=== PATIENT | male | born 1965 | race Caucasian/White ===

== ENCOUNTER 2019-09-20 00:10 | Outpatient (CLI) | payer BC, SELFPAY ==
[2019-09-20 17:53] LABS: SARS-CoV-2 RNA PCR Negative
== END 2019-09-20 00:11 | disposition home or self-care (01) ==
LOC: ANHCOVIDDT 00:10
PROVIDERS: PCP Family Medicine Adolescent Medicine; Visit Provider Internal Medicine Gastroenterology
DX: Z20.828 Contact with and (suspected) exposure to other viral communicable diseases (principal); Z01.812 Encounter for preprocedural laboratory examination
CPT/HCPCS: 87635; C9803; U0003

== ENCOUNTER 2019-09-23 02:21 | Day surgery (SDC) | payer BC, SELFPAY ==
[2019-09-20 13:03] VITALS: BMI 24.0
[2019-09-23 06:33] VITALS: BP 115/72; PULSE 63; RESP 16; TEMP 36.6; O2SAT 99
[2019-09-23] MEDS: LACTATED RINGERS 1,000 ML 150 ML IV CONT (06:49)
--- NOTE | 2019-09-23 06:50 | WPDANESEPPF ---
Anes - Initial Pre Proc Eval Procedure: Operation Date: 09/23/19 07:30 Proposed Procedures p Screening Colonoscopy - Bhaskar Vaughn MD Date/Time: 09/23/19 06:50 Surgeon: Bhaskar Vaughn MD Pre Op Diagnosis: Neoplasm Screening Patient Data Age: 54 Gender: M Height: 5 ft 10.5 in Weight: 79.4 kg Last Vital Signs Temp 36.6 C 09/23/19 06:33 Pulse 63 09/23/19 06:33 Resp 16 09/23/19 06:33 BP 115/72 09/23/19 06:33 Pulse Ox 99 09/23/19 06:33 Allergies Allergy/AdvReac Type Severity Reaction Status Date / Time SHELLFISH Allergy Mild Uncoded 08/24/09 19:25 Home Medications Medication Instructions Recorded Confirmed Type No Home Medications 09/20/19 09/20/19 History Patient hx anesthesia problems: none Family hx anesthesia problems: none PMFSH Past Medical History Medical History (Updated 09/23/19 @ 06:55 by Norbert Marie MD) Arthritis History of renal stone Surgical History Surgical History (Updated 09/23/19 @ 06:56 by Norbert Marie MD) H/O hernia repair Social History Social History (Updated 09/23/19 @ 06:56 by Norbert Marie MD) Smoking status: Never smoker Gender identity (if verbalized by the patient): Male Anes - Eval Final PreProcedure Day of Procedure 09/23/19 06:50 Patient weight: normal Heart: regular rate and rhythm Lungs: clear to auscultation Airway: Mallampati scale class II Neurological: alert and oriented Last oral intake: >/= 8 hours ASA classification: I Emergent: no Anesthetic plan: proceed Anesthesia type and monitoring: general GIVS and standard monitoring Informed Consent: The patient's anesthetic plan and its attendant risks and benefits were discussed with the patient/family/POA. Questions were solicited and answers provided to the satisfaction of the patient/family/POA.
--- NOTE | 2019-09-23 07:47 | WPDGICN ---
Assessment and Plan Assessment and plan (1) Encounter for screening for colorectal malignant neoplasm: Code(s): Z12.11 - Encounter for screening for malignant neoplasm of colon; Z12.12 - Encounter for screening for malignant neoplasm of rectum Status: Acute Assessment and Plan: Plan is for screening colonoscopy because of patient's age. Patient has no significant risk factors. GI Consult Note Consult date/time: 09/23/19 07:47 HPI: Maciel Lam is a 54 year old male seen in [facility] emergency department at the request of Dr Tee Miller.Patient presents for neoplasia screening colonoscopy. Patient's current weight appetite bowel movements are normal. Patient denies abdominal pain. He states his bowel habits are normal. He denies any blood in his stools. His weight has remained stable. Family history is noncontributory. There is no known history of colon or rectal disease. Review of Systems Review of Systems: All systems reviewed & are unremarkable except as noted in HPI and below PMFSH Past Medical History Medical History Arthritis History of renal stone Surgical History Surgical History H/O hernia repair Social History Social History Smoking status: Never smoker Gender identity (if verbalized by the patient): Male Meds Home Medications and Allergies Home Medications Medication Instructions Recorded Confirmed Type No Home Medications 09/20/19 09/20/19 History Allergies Allergy/AdvReac Type Severity Reaction Status Date / Time SHELLFISH Allergy Mild Rash Uncoded 09/23/19 06:59 Vital Signs Vital Signs - 24 hr 09/23/19 06:33 Temperature 36.6 C Pulse Rate 63 Respiratory Rate 16 Blood Pressure 115/72 Pulse Oximetry 99 Exam Narrative: Exam Narrative: Physical exam reveals patient to be alert. Vital signs stable. HEENT exam unremarkable. Lungs are clear to auscultation and percussion. Heart is without murmur or extra sounds. Abdominal exam bowel sounds are present soft nontender with no organomegaly. Digital external rectal exam is normal.
[2019-09-23 07:49] VITALS: BP 105/72; PULSE 71; RESP 14; O2SAT 98
[2019-09-23 07:59] VITALS: BP 113/85; PULSE 69; RESP 14; O2SAT 100
[2019-09-23 08:09] VITALS: BP 118/80; PULSE 64; RESP 14; O2SAT 100
== END 2019-09-23 08:30 | disposition home or self-care (01) ==
PROVIDERS: PCP Family Medicine Adolescent Medicine; Visit Provider Internal Medicine Gastroenterology
PROC: 0DJD8ZZ Inspection of Lower Intestinal Tract, Via Natural or Artificial Opening Endoscopic (ICD-10-PCS; CPT 45378; principal; 2019-09-23 07:30)
DX: Z12.11 Encounter for screening for malignant neoplasm of colon (principal); K64.8 Other hemorrhoids
CPT/HCPCS: G0121; J2704; J7120

== ENCOUNTER 2021-05-02 14:43 | Emergency (ER) | payer BC, SELFPAY ==
--- NOTE | ~2021-05-02 | XR_ITS ---
XR hand RT 2V DATE: 05/02/2021 15:47 INDICATION: Foreign body right hand TECHNIQUE: AP and lateral views COMPARISON: None FINDINGS: An approximately 7 cm long nail extends from the soft tissues of the proximal first digit a long the anterior distal thenar eminence soft tissues, terminating well anterior to the proximal medi al shaft of the third metacarpal bone., without any bony involvement. There is no fracture or disloca tion. IMPRESSION: Nail in the soft tissues of the base of the thumb and distal thenar eminence, without any bony penetration or fracture Reviewed, dictated and finalized at location A. 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
[2021-05-02 14:51] VITALS: BP 159/86; PULSE 87; RESP 16; TEMP 37; O2SAT 99
--- NOTE | 2021-05-02 16:18 | ED.SKABFB ---
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 Patient denies any tingling or numbness to his hand with strong right radial pulse. MD complaint: foreign body (right hand) Related Data Allergies Allergy/AdvReac Type Severity Reaction Status Date / Time SHELLFISH Allergy Mild Rash Uncoded 05/02/21 16:05 Review of Systems Review of Systems: CONSTITUTIONAL: Denies fever, chills, or sweats. EYES: Denies visual changes, redness, or discharge. ENT: Denies rhinorrhea, congestion, sore throat, or otalgia. CARDIOVASCULAR: Denies chest pain, palpitations, or edema. RESPIRATORY: Denies cough or dyspnea. GASTROINTESTINAL: Denies abdominal pain, nausea, vomiting, or diarrhea. GENITOURINARY: Denies dysuria or hematuria. SKIN: Denies rash or itching.foreign body in his right painter aspect of right hand MUSCULOSKELETAL: Denies back pain, joint pain, or myalgia. NEUROLOGIC: Denies headache, numbness, or weakness. PSYCHIATRIC: Denies anxiety or depression. All systems reviewed & are unremarkable except as noted in HPI and below [facility] Past Medical History Medical History (Updated 05/03/21 @ 00:00 by Luis Morrison) Arthritis History of renal stone Surgical History Surgical History H/O hernia repair Social History Social History (Updated 05/03/21 @ 01:35 by Lizette Mcfarlane NP) Smoking status: Never smoker Alcohol intake: current Alcohol use details: social Substance use: never Living arrangements: with family Gender identity (if verbalized by the patient): Male Comments At time of signature, agree with nursing past medical, surgical, social and family history. There is no relevant family history pertinent to the presenting complaint Exam Narrative: GENERAL: Well-appearing, well-nourished, and in no acute distress. HEAD: Normocephalic, atraumatic. EYES: PERRLA and EOMI. ENT: Nares clear, no rhinorrhea or epistaxis. Mucous membranes moist.Tm'snormal throat pink with no lesions or exudate or tonsil enlargement. NECK: Supple. No lymphadenopathy CHEST: Clear to auscultation. No respiratory distress. HEART: Regular rate and rhythm. No murmur heard. Normal peripheral pulses. ABDOMEN: Soft, nontender, nondistended, normal active bowel sounds. EXTREMITIES: Normal range of motion. No edema.full mobility of right fingers with sensation and circulation intact, strong right radial pulse SKIN: Warm, dry, no rash.7cm embedded nail in painter aspect of right hand NEURO: No focal deficits. Alert and oriented x3. Course Course Level of Care: Express Care Visit Vital Signs Vital signs: Vital Signs Temperature 37.0 C 05/02/21 14:51 Pulse Rate 87 05/02/21 14:51 Respiratory Rate 16 05/02/21 14:51 Blood Pressure 159/86 H 05/02/21 14:51 Pulse Oximetry 99 05/02/21 14:51 Temperature 37.0 C 05/02/21 14:51 Pulse Rate 87 05/02/21 14:51 Respiratory Rate 16 05/02/21 14:51 Blood Pressure 159/86 H 05/02/21 14:51 Pulse Oximetry 99 05/02/21 14:51 Procedures Foreign Body Removal Foreign Body #1: Foreign Body Removal Date: 05/02/21 Foreign Body Removal Time: 16:00 Time Out Performed: yes Site: right and hand Description of foreign body: other (7 cm nail) Sedation/Analgesia: other (Lidocaine 1% 6ml injected into hand along entrance and exit area of nail in right cannon
[2021-05-02] MEDS: TETANUS,DIPHTHERIA,AC PERTUSSIS ADULT (0.5 ML) BOOSTRIX IM (16:39)
== END 2021-05-02 16:50 | disposition home or self-care (01) ==
PROVIDERS: Emergency Provider Registered Nurse
DX: S61.441A Puncture wound with foreign body of right hand, initial encounter (principal); W45.0XXA Nail entering through skin, initial encounter; Z23 Encounter for immunization; M19.90 Unspecified osteoarthritis, unspecified site
CPT/HCPCS: 73120; 90471; 90715; 99213; G0463

== ENCOUNTER 2024-04-06 17:38 | Emergency (ER) | payer BC, SELFPAY ==
--- NOTE | ~2024-04-06 | XR_ITS ---
XR chest 2V Ordering provider: La Betts MD History: 59 years Male with . Chest Pressure . Comparison: None. FINDINGS: MEDIASTINUM: The cardiac silhouette is not enlarged. LUNGS: No infiltrates, effusions or pneumothorax. Prominent bronchovascular markings in the lower lobes. OTHER: No free air under the diaphragm. IMPRESSION: Prominent bronchovascular markings in the lower lobes which may indicate bronchitis versus early bron chopneumonia. Follow-up advised. Reviewed, dictated and finalized at location A. 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 Follow-up advised.
--- NOTE | 2024-04-06 17:39 | ECG_ITS ---
Test Date: 2024-04-06 17:44:53 Measurements Intervals [place] Rate: 85 P: 64 MD: 161 QRS: -5 QRSD: 103 T: 48 QT: 335 QTc: 399 Interpretive Statements SINUS RHYTHM POSSIBLE LEFT ATRIAL ENLARGEMENT [-0.1mV P WAVE IN V1/V2] INCOMPLETE RIGHT BUNDLE BRANCH BLOCK [90+ ms QRS DURATION, TERMINAL R IN V1/V2, 40+ ms S IN I/aVL/V4/V5/V6] No previous ECG available for comparison Electronically Signed On 04-10-2024 15:54:04 DIRECTOR OF FIELD COORDINATION by Jael June M.D.
[2024-04-06 17:45] VITALS: BP 157/98; PULSE 85; RESP 16; TEMP 36.8; O2SAT 98
[2024-04-06 17:59] LABS: Basophils Absolute Auto 0.1 K/mm3 (0.0-0.1); Basophils Percent Auto 0.6 % (0.2-1.2); Eosinophils Absolute Auto 0.4 K/mm3 (0-0.3); Eosinophils Percent Auto 5.2 % (0-4.4); Hematocrit 43.1 % (42.0-52.0); Hemoglobin 14.9 g/dL (14.0-18.0); Immature Granulocyte Absolute 0.02 K/mm3 (0.00-0.031); Immature Granulocyte Percent A 0.3 % (0-0.5); Lymphocytes Absolute Auto 2.86 K/mm3 (0.9-3.2); Lymphocytes Percent Auto 36.3 % (18.3-44.2); Mean Corpuscular HGB Conc 34.6 g/dl (32-36); Mean Corpuscular Hemoglobin 33.3 pg (26-34); Mean Corpuscular Volume 96.4 fl (80-100); Mean Platelet Volume 10.6 fl (7.4-10.4); Monocytes Absolute Auto 0.7 K/mm3 (0.1-0.6); Monocytes Percent Auto 9.3 % (2.6-8.5); Neutrophils Absolute Auto 3.8 K/mm3 (1.3-6.7); Neutrophils Percent Auto 48.3 % (45.5-73.1); Platelet Count Result 202 k/mm3 (150-375); Red Blood Count 4.47 M/mm3 (4.6-6.20); Red Cell Distribution Width 11.7 % (11.5-14.5); White Blood Count 7.9 K/mm3 (4.5-10.0)
[2024-04-06 18:09] LABS: Alanine Aminotransferase 29 U/L (6-50); Albumin Level 4.4 g/dL (3.5-5.1); Alkaline Phosphatase 111 U/L (38-126); Anion Gap 3 mmol/L (4-12); Aspartate Amino Transferase 26 U/L (17-59); Bilirubin,Total 0.7 mg/dL (0.2-1.3); Blood Urea Nitrogen 20 mg/dL (9-20); Carbon Dioxide 25 mmol/L (22-30); Chloride 107 mmol/L (98-107); Estimated CRCL calculation 75 ml/min; Estimated Glomerular Filt Rate > 60; Glucose 138 mg/dL (65-110); Lipase 63 U/L (23-300); Potassium 3.8 mmol/L (3.4-5.0); Sodium 135 mmol/L (137-145)
[2024-04-06 18:20] LABS: INR 0.9; Partial Thromboplastin Time 24.9 Seconds (22.3-36.8)
[2024-04-06 18:21] LABS: Troponin I < 0.012 ng/mL (0.000-0.034)
--- NOTE | 2024-04-06 20:25 | ECG_ITS ---
Test Date: 2024-04-06 20:28:34 Measurements Intervals [place] Rate: 70 P: 62 ME: 167 QRS: 12 QRSD: 92 T: 48 QT: 362 QTc: 391 Interpretive Statements SINUS RHYTHM INCOMPLETE RIGHT BUNDLE BRANCH BLOCK Compared to ECG 04/06/2024 17:44:53 NO SIGNIFICANT CHANGES Electronically Signed On 04-10-2024 15:58:08 CRAYON SORTING MACHINE FEEDER by Jael June M.D.
[2024-04-06 20:50] VITALS: BP 131/72; PULSE 70; RESP 15; TEMP 36.4; O2SAT 100
[2024-04-06 21:12] LABS: Troponin I < 0.012 ng/mL (0.000-0.034)
--- NOTE | 2024-04-06 22:36 | ED.GENADULT ---
HPI - General Adult General Chief complaint: Chest Pain Stated complaint: Chest Pressure, High BP Time Seen by Provider: 04/06/24 22:30 History of Present Illness HPI narrative: patient 59-year-old gentleman who presents emergency department with chief complaint of chest discomfort. The patient states of last several days discomfort in the left side of his chest the patient reports that it feels like a gnawing type pain Related Data Home Medications ?Medication ?Instructions ?Recorded ?Confirmed ?Last Taken ?Type No Home Medications 04/09/24 04/09/24 Unknown History Allergies Allergy/AdvReac Type Severity Reaction Status Date / Time SHELLFISH Allergy Severe Swelling Uncoded 04/09/24 15:53 of Lip/Tongue/Throat Review of Systems Review of Systems: A 10 system review of systems was completed on the patient and is negative except for what is stated in the HPI. Nursing and ancillary documentation was reviewed. [facility] Past Medical History Medical History (Updated 04/09/24 @ 16:49 by Harinder Sampson DO) Arthritis History of renal stone Surgical History Surgical History H/O hernia repair Social History Social History Smoking status: Never smoker Alcohol intake: current Alcohol use details: social Substance use: never Living arrangements: with family Gender identity (if verbalized by the patient): Male Exam Narrative: GENERAL: Well-appearing, well-nourished, and in no acute distress. HEAD: Normocephalic, atraumatic. EYES: PERRLA and EOMI. ENT: Nares clear, no rhinorrhea or epistaxis. Mucous membranes moist. NECK: Supple. CHEST: Clear to auscultation. No respiratory distress. HEART: Regular rate and rhythm. No murmur heard. Normal peripheral pulses. ABDOMEN: Soft, nontender, nondistended, normal active bowel sounds. EXTREMITIES: Normal range of motion. No edema. SKIN: Warm, dry, no rash. NEURO: No focal deficits. Alert and oriented x3. PSYCH: Normal mood and affect. Course Vital Signs Vital signs: Vital Signs Temperature 36.8 C 04/06/24 17:45 Pulse Rate 85 04/06/24 17:45 Respiratory Rate 16 04/06/24 17:45 Blood Pressure 157/98 H 04/06/24 17:45 Pulse Oximetry 98 04/06/24 17:45 Temperature 36.4 C 04/06/24 20:50 Pulse Rate 72 04/06/24 23:19 Respiratory Rate 17 04/06/24 23:19 Blood Pressure 132/98 H 04/06/24 23:19 Pulse Oximetry 98 04/06/24 23:19 Oxygen Delivery Room Air 04/06/24 23:18 Medical Decision Making MDM Narrative Medical decision making narrative: differential diagnosis includes ACS, chest wall pain, pneumonia, pneumothorax CBC was within normal limits CMP is within normal limits troponin was 0 hour and 3 hour chest x-ray showed Prominent bronchovascular markings in the lower lobes which may indicate bronchitis versus early bronchopneumonia. Follow-up advised. Vital Signs Vital Signs: Vital Signs Temperature 36.8 C 04/06/24 17:45 Pulse Rate 85 04/06/24 17:45 Respiratory Rate 16 04/06/24 17:45 Blood Pressure 157/98 H 04/06/24 17:45 Pulse Oximetry 98 04/06/24 17:45 Temperature 36.4 C 04/06/24 20:50 Pulse Rate 72 04/06/24 23:19 Respiratory Rate 17 04/06/24 23:19 Blood Pressure 132/98 H 04/06/24 23:19 Pulse Oximetry 98 04/06/24 23:19 Oxygen Delivery Room Air 04/06/24 23:18 Lab Data 04/06/24 17:54 04/06/24 17:53 Labs: Lab Results 04/06/24 04/06/24 04/06/24 Range/Units 17:53 17:54 20:32 WBC 7.9 (4.5-10.0) K/mm3 RBC 4.47 L (4.6-6.20) M/mm3 Hgb 14.9 (14.0-18.0) g/dL Hct 43.1 (42.0-52.0) % MCV 96.4 (80-100) fl MCH 33.3 (26-34) pg MCHC 34.6 (32-36) g/dl RDW 11.7 (11.5-14.5) % Plt Count 202 (150-375) k/mm3 MPV 10.6 H (7.4-10.4) fl Immature Gran % (Auto) 0.3 (0-0.5) % Neut % (Auto) 48.3 (45.5-73.1) % Lymph % (Auto) 36.3 (18.3-44.2) % [place] % (Auto) 9.3 H (2.6-8.5) % Eos % (Auto) 5.2 H (0-4.4) % Baso % (Auto) 0.6 (0.2-1.2) % Lymph # (Auto) 2.86 (0.9-3.2) K/mm3 [place] # (Auto) 0.7 H (0.1-0.6) K/mm3 Eos # (Auto) 0.4 H (0-0.3) K/mm3 Baso # (Auto) 0.1 (0.0-0.1) K/mm3 Abs Immat Gran (auto) 0.02 (0.00-0.031) K/mm3 Absolute Neuts (auto) 3.8 (1.3-6.7) K/mm3 Absolute Nucleated RBC 0.000 (0.0-0.012) K/mm3 Nucleated RBC % 0.0 (0.0-0.2) % PT 12.0 (11.1-14.7) Seconds INR 0.9 APTT 24.9 (22.3-36.8) Seconds Sodium 135 L (137-145) mmol/L Potassium 3.8 (3.4-5.0) mmol/L Chloride 107 (98-107) mmol/L Carbon Dioxide 25 (22-30) mmol/L Anion Gap 3 L (4-12) mmol/L BUN 20 (9-20) mg/dL Creatinine 1.00 (0.7-1.3) mg/dL Estim Creat Clear Calc 75 ml/min Estimated GFR > 60 (59 - ) Glucose 138 H (65-110) mg/dL Calcium 9.0 (8.4-10.2) mg/dL Total Bilirubin 0.7 (0.2-1.3) mg/dL AST 26 (17-59) U/L ALT 29 (6-50) U/L Alkaline Phosphatase 111 (38-126) U/L Troponin I < 0.012 < 0.012 (0.000-0.034) ng/mL Total Protein 7.0 (6.3-8.2) g/dL Albumin 4.4 (3.5-5.1) g/dL Lipase 63 (23-300) U/L Discharge Plan Discharge Clinical Impression: Atypical chest pain Patient Disposition: Home, Self-Care Condition: Stable Instructions: Antibiotic Form, Chest Pain (ED) Patient Language: Czech Prescriptions: No Action No Home Medications Follow-up/Referrals: Ranjan Peters MD [Physician] - UNKNOWN,DOCTOR [Primary Care Provider] - Time of Disposition: 22:43
[2024-04-06 23:18] VITALS: PULSE 70; O2SAT 100
[2024-04-06 23:19] VITALS: BP 132/98; PULSE 72; RESP 17; O2SAT 98
== END 2024-04-06 23:20 | disposition home or self-care (01) ==
PROVIDERS: Emergency Medicine; Emergency Provider Emergency Medicine
DX: R07.89 Other chest pain (principal); M19.90 Unspecified osteoarthritis, unspecified site; Z87.442 Personal history of urinary calculi; I45.10 Unspecified right bundle-branch block; R94.31 Abnormal electrocardiogram [ECG] [EKG]
CPT/HCPCS: 36415; 71046; 80053; 83690; 84484; 85025; 85610; 85730; 93005; 99284

== ENCOUNTER 2024-05-03 09:33 | Outpatient (CLI) | payer BC, SELFPAY ==
--- NOTE | ~2024-05-03 | NM_ITS ---
EXAMINATION: NM stress w perf spect multi DATE: 05/03/2024 11:58 MANAGER OF TRAINING INDICATION: Chest pain TECHNIQUE: Rest images were obtained following intravenous administration of 11.2 mCi Tc99m tetrofosm in (Myoview). The patient was infused intravenously with Lexiscan (regadenoson). Then, 33.9 mCi Tc99m tetrofosmin (Myoview) was administered intravenously, and stress images were obtained. Data was jv nstructed into short axis and horizontal and vertical long axis SPECT images. Gated SPECT images were also obtained. COMPARISON: None. FINDINGS: There is no definite reversible or fixed perfusion abnormality to suggest ischemia or infar ction. There is no segmental wall motion abnormality. Left ventricular ejection fraction measures 7 1%. IMPRESSION: 1. No definite ischemia or infarct. 2. Normal left ventricular ejection fraction measuring 71%. Reviewed, dictated and finalized at location A. GER OF TRAINING
--- NOTE | 2024-05-03 09:48 | EST_ITS ---
Patient Info Name: Maciel Lam Age: 59 years : 1965 Gender: Male Ht: 70 in Wt: 175 lbs BSA: 1.99 m2 HR: 65 bpm BP: 119 / 72 mmHg Exam Date: 05/03/2024 10:39 AM Exam Location: Echo Lab Patient Status: Outpatient Admit Date: 05/03/2024 Staff Ordering Physician: Harinder Sampson DO Attending Provider: Harinder Sampson DO Exercise Technologist: Nguyen Mishra [facility] Exercise Physician: Presley Renee DO Exam Type: CA stress test treadmill w NM Study Info A nuclear stress test was performed. A nuclear stress test was performed. Summary 1. 1. Negative Ian exercise stress test for ischemic ST changes by ECG criteria. 2. 2. Good functional capacity, achieving 12 METs of workload. 3. 3. Appropriate HR response to exercise. 4. 4. Appropriate HR recovery at 1 minute post exercise. 5. 5. Nuclear scan to follow and will be reported separately. Please correlate with it. 6. 6. Patient informed of the above results. Protocol: Ian Stress ECG Details Stage: REST Duration (min): 2 min : 18 sec Speed (mph): 0.0 Grade (%): 0 HR (bpm): 65 SBP (mmHg): 119 DBP (mmHg): 72 METS: --- Stage: REST Duration (min): 2 min : 50 sec Speed (mph): 0.0 Grade (%): 0 HR (bpm): 67 SBP (mmHg): 119 DBP (mmHg): 72 METS: --- Stage: REST Duration (min): 4 min : 36 sec Speed (mph): 0.0 Grade (%): 0 HR (bpm): 85 SBP (mmHg): 119 DBP (mmHg): 72 METS: --- Stage: STAGE 1 Duration (min): 1 min : 0 sec Speed (mph): 1.7 Grade (%): 10 HR (bpm): 91 SBP (mmHg): 119 DBP (mmHg): 72 METS: --- Stage: STAGE 1 Duration (min): 2 min : 0 sec Speed (mph): 1.7 Grade (%): 10 HR (bpm): 95 SBP (mmHg): 119 DBP (mmHg): 72 METS: --- Stage: STAGE 1 Duration (min): 3 min : 0 sec Speed (mph): 1.7 Grade (%): 10 HR (bpm): 93 SBP (mmHg): 137 DBP (mmHg): 78 METS: --- Stage: STAGE 2 Duration (min): 1 min : 0 sec Speed (mph): 2.5 Grade (%): 12 HR (bpm): 103 SBP (mmHg): 137 DBP (mmHg): 78 METS: --- Stage: STAGE 2 Duration (min): 2 min : 0 sec Speed (mph): 2.5 Grade (%): 12 HR (bpm): 107 SBP (mmHg): 151 DBP (mmHg): 73 METS: --- Stage: STAGE 2 Duration (min): 3 min : 0 sec Speed (mph): 2.5 Grade (%): 12 HR (bpm): 110 SBP (mmHg): 151 DBP (mmHg): 73 METS: --- Stage: STAGE 3 Duration (min): 1 min : 0 sec Speed (mph): 3.4 Grade (%): 14 HR (bpm): 119 SBP (mmHg): 121 DBP (mmHg): 75 METS: --- Stage: STAGE 3 Duration (min): 2 min : 0 sec Speed (mph): 3.4 Grade (%): 14 HR (bpm): 120 SBP (mmHg): 121 DBP (mmHg): 75 METS: --- Stage: STAGE 3 Duration (min): 3 min : 0 sec Speed (mph): 3.4 Grade (%): 14 HR (bpm): 124 SBP (mmHg): 155 DBP (mmHg): 71 METS: --- Stage: STAGE 4 Duration (min): 1 min : 0 sec Speed (mph): 4.2 Grade (%): 16 HR (bpm): 134 SBP (mmHg): 155 DBP (mmHg): 71 METS: --- Stage: STAGE 4 Duration (min): 2 min : 0 sec Speed (mph): 4.2 Grade (%): 16 HR (bpm): 143 SBP (mmHg): 173 DBP (mmHg): 92 METS: --- Stage: STAGE 4 Duration (min): 2 min : 15 sec Speed (mph): 4.2 Grade (%): 16 HR (bpm): 144 SBP (mmHg): 173 DBP (mmHg): 92 METS: --- Stage: RECOVERY Duration (min): 0 min : 44 sec Speed (mph): 0.0 Grade (%): 0 HR (bpm): 118 SBP (mmHg): 173 DBP (mmHg): 92 METS: --- Stage: RECOVERY Duration (min): 1 min : 44 sec Speed (mph): 0.0 Grade (%): 0 HR (bpm): 91 SBP (mmHg): 173 DBP (mmHg): 92 METS: --- Stage: RECOVERY Duration (min): 2 min : 44 sec Speed (mph): 0.0 Grade (%): 0 HR (bpm): 93 SBP (mmHg): 155 DBP (mmHg): 84 METS: --- Stage: RECOVERY Duration (min): 3 min : 2 sec Speed (mph): 0.0 Grade (%): 0 HR (bpm): 83 SBP (mmHg): 155 DBP (mmHg): 84 METS: --- Rest HR: 85 bpm Peak HR: 145 bpm Rest Sys BP: 119 mmHg Peak Sys BP: 173 mmHg Max Pred HR: 161 bpm % Max Pred HR: 90 % Target HR: 137 bpm Max RPP: 25,085 bpm*mmHg Naranjo Score: 8 Termination Reason: Reached target heart rate or workload Cardiac Symptoms: None Max ST Seg Deviation: 1 mm Total Time: 11 min : 15 sec Rest Smith BP: 72 mmHg Peak Smith BP: 92 mmHg Angina Score: None Total METS: 12.1 Resting ECG Sinus rhythm. Stress ECG No ST changes. Arrhythmias None. Report Signatures
--- OUTSIDE RECORDS SUMMARY | 2024-05-03 09:51 | XMS_ITS | Referral Summary ---
Author Organization 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,non-owned Affiliates and Associated Physician Practices is amultiple site organization consisting of ambulatory clinics and hospital sitesin [place], [place], [place] and [place]. This disclosure is being madepursuant to the Care Everywhere program and may not contain all information available regarding this patient. Last updated 17.[facility] Allergies Active Allergy Reactions Criticality Noted Date Comments Shellfish Allergy Angioedema High 11/17/2022 Medications * Be aware that medications may not be up to date on this document. Alwaysverify current medications with the patient. Medication Sig Dispensed Refills Start Date End Date Status apixaban (Eliquis) 2.5 MG tabletIndications:D eep Vein Thrombosis Take 1 (one) tablet by mouth 2 times daily for 35 days 70 tablet 11/19/2022 Active acetaminophen-codei ne (Tylenol #3) 300-30 MG tablet Take 1 (one) tablet by mouth 2 times daily as needed for Pain 30 tablet 12/21/2022 Active Additional Information Patient not taking.Reported on 03/17/2023 HYDROcodone-acetami nophen ([place]) 5-325 MG tabletIndications:C losed fracture of shaft of right femur, unspecified fracture morphology, initial encounter ([facility]) Take 1 (one) tablet by mouth every 8 hours as needed for Pain 30 tablet 12/26/2022 Active Additional Information Patient not taking.Reported on 03/17/2023 naproxen sodium (Aleve) 220 MG tablet Take 1 (one) tablet by mouth 2 times daily as needed for Pain Active Active Problems Problem Noted Date Diagnosed Date Multiple facial fractures 11/18/2022 Impaired mobility and ADLs 11/18/2022 Fall, initial encounter 11/16/2022 Laceration of scalp, initial encounter Closed fracture of shaft of right femur, unspecified fracture morphology, initial encounter 11/16/2022 Immunizations Name Administration Dates Next Due TDAP (7yrs+) 11/16/2022 Social History Tobacco Use Types Packs/Day Years Used Date Smoking Tobacco: Never Smokeless Tobacco: Never Tobacco Cessation:Counseling Given: Not Answered Alcohol Use Standard Drinks/Week Comments Yes 0 (1 standard drink = 0.6 oz pur e alcohol) social OASIS D0700: Social Isolation Answer Da te Recorded Frequency of experiencing loneliness or isolatio n Never 12/30/2022 OASIS A1250: Transportation Answer Date Recorded Lack of Transportation (Medical) No 12/30/2022 Lack of Transportation (Non-Medical) No 12/30/2022 Patient Unable or Declines to Respond No 12/30/2022 OASIS B1300: Health Literacy Answer Hakan e Recorded Frequency of needing help to read materials from doctor or pharmacy Never 12/30/2022 AUDIT-C Answer Date Recorded Q1: How often do you have a drink containing alc ohol? 2-4 times a month 11/17/2022 Q2: How many drinks containi ng alcohol do you have on a typical day when you are drinking? 1 or 2 11/17/2022 Q3: How often do you have si x or more drinks on one occasion? Less than monthly 11/17/2022 Overall Financial Resource Strain (CARDIA) Answe r Date Recorded How hard is it for you to pa y for the very basics like food, housing, medical care, and heating? Not hard at all 11/17/2022 PHQ-2 Answer Date Recorded Patient Health Questionnaire-2 Score 0 03/17/2023 [facility] [employer] [facility] - Occupational Stress Questionnaire Answer Date Recorded Do you feel stress - tense, restless, nervous, or anxious, or unable to sleep at night because your mind is troubled all the time - these days? Not at all 11/17/2022 Hunger Vital Sign Answer Date Recorded Within the past 12 months, y ou worried that your food would run out before you got the money to buy more. Never true 11/18/19 23 Within the past 12 months, t he food you bought just didn't last and you didn't have money to get more. Never true 11/17/2022 PRAPARE - Transportation Answer Date Re corded In the past 12 months, has l ack of transportation kept you from medical appointments or from getting medications? No 11/01 In the past 12 months, has l ack of transportation kept you from meetings, work, or from getting things needed for daily living? No 11/17/2022 Housing Stability Vital Sign Answer Hakan e Recorded In the last 12 months, was t here a time when you were not able to pay the mortgage or rent on time? No 11/17/2022 In the last 12 months, how many places have you lived? 1 11/17/2022 In the last 12 months, was t here a time when you did not have a steady place to sleep or slept in a nursing home (including now)? 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 No 11/17/2022 Is person blind or have serious difficulty seein g? No 11/17/2022 Does person have serious dif ficulty walking/climbing stairs? No 11/17/2022 Does person have difficulty dressing/bathing? No 11/17/2022 Does person have difficulty doing errands alone? No 11/17/2022 Cognitive Status Response Date of Assessm ent Does person have difficulty concentrating/remembering/making decisions? No 11/17/2022 Plan of Treatment Not on file Medical Devices Implanted Type Area Business Development Device Identifier Shelf Expiration Date Model / Serial / Lot Nail Im 11.5mm 13mm 40cm Ntr Nail Fem Implanted:Qty: 1 on 11/17/2022 by Jacoby Sosa MD at [facility] Right: Femur [employer] 04/02/2029 [id number] / / [id number] Screw 6mm 3.5mm 55mm Ft Fx Ang Hex Head Implanted:Qty: 1 on 11/17/2022 by Jacoby Sosa MD at [facility] Right: Femur [employer] 11/25/2030 [id number] / / [id number] Screw 5mm 3.5mm 45mm Ft Fx Ang Hex Head Implanted:Qty: 1 on 11/17/2022 by Jacoby Sosa MD at [facility] Right: Femur [employer] 09/07/2032 [id number] / / [id number] Advance Directives Documents on File Type Date Recorded 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
--- OUTSIDE RECORDS SUMMARY | 2024-05-03 09:51 | XMS_ITS | Patient Health Summary ---
Author Organization [facility] Address [address] [place] [address] Care Team Providers Care Brick Carrier Name Role Phone Tee Miller MD Primary Care Provider + Note from [facility],non-owned Affiliates and Associated Physician Practices is amultiple site organization consisting of ambulatory clinics and hospital sitesin [place], [place], [place] and [place]. This disclosure is being madepursuant to the Care Everywhere program and may not contain all information available regarding this patient. Last updated 17.[facility] Allergies * Shellfish Allergy(Angioedema) -High Criticality Medications * Be aware that medications may not be up to date on this document. Alwaysverify current medications with the patient. * apixaban (Eliquis) 2.5 MG tablet(Started 11/19/2022) Take 1 (one) tablet by mouth 2 times daily for 35 days * acetaminophen-codeine (Tylenol #3) 300-30 MG tablet(Started 12/21/2022) Take 1 (one) tablet by mouth 2 times daily as needed for Pain * HYDROcodone-acetaminophen ([place]) 5-325 MG tablet(Started 12/26/2022) Take 1 (one) tablet by mouth every 8 hours as needed for Pain * naproxen sodium (Aleve) 220 MG tablet Take 1 (one) tablet by mouth 2 times daily as needed for Pain Active Problems Problem Noted Date Diagnosed Date Multiple facial fractures 11/18/2022 Impaired mobility and ADLs 11/18/2022 Fall, initial encounter 11/16/2022 Laceration of scalp, initial encounter 3 Closed fracture of shaft of right femur, unspecified fracture morphology, initial encounter 11/16/2022 Immunizations * TDAP (7yrs+)(Given 11/16/2022) Social History Tobacco Use Types Packs/Day Years [...] Recorded Patient Health Questionnaire-2 Score 0 03/17/2023 [facility] [place] of Occupat ional Health - Occupational Stress [...] place to sleep or slept in a half-way (including now)? No 11/17/2022 Sex and Gender [...] 81.2 kg (179 lb) 03/17/2023 8:31 AM [employer] Height 180.3 cm (5' 11 ) 01/06/2023 1:40 PM CDT Body Mass Index 24.97 01/06/2023 1:40 PM CDT Medical Devices Implanted Type Area Arboriculture Teacher Device Identifier Shelf Expiration Date Model / Serial / Lot Nail Im 11.5mm 13mm 40cm Ntr Nail Fem Implanted:Qty: 1 on 11/17/2022 by Jacoby Sosa MD at [facility] Right: Femur [employer] 04/02/2029 [id number] / / [id number] Screw 6mm 3.5mm 55mm Ft Fx Ang Hex Head Implanted:Qty: 1 on 11/17/2022 by Jacoby Sosa MD at [facility] Right: Femur [employer] 11/25/2030 [id number] / / [id number] Screw 5mm 3.5mm 45mm Ft Fx Ang Hex Head Implanted:Qty: 1 on 11/17/2022 by Jacoby Sosa MD at [facility] Right: Femur [employer] 09/07/2032 [id number] / / [id number] Procedures * XR FEMUR RIGHT 2VW(Performed 05/24/2023) Performed for Closed fracture of shaft of right femur, unspecified fracture morphology, initial encounter ([facility]) * XR FEMUR RIGHT 2VW(Performed 03/21/2023) Performed for Closed fracture of shaft of right femur, unspecified fracture morphology, initial encounter ([facility]) * MRI KNEE RIGHT WO CONTRAST(Performed 02/13/2023) Performed for Closed fracture of shaft of right femur, unspecified fracture morphology, initial encounter ([facility]) * XR FEMUR RIGHT 2VW(Performed 02/10/2023) Performed for Closed fracture of shaft of right femur, unspecified fracture morphology, initial encounter ([facility]) * XR FEMUR RIGHT 2VW(Performed 01/06/2023) Performed for Closed fracture of shaft of right femur, unspecified fracture morphology, initial encounter ([facility]) * CT HEAD WO CONTRAST(Performed 12/27/2022) Performed for Closed fracture of shaft of right femur, unspecified fracture morphology, initial encounter ([facility]) * XR FEMUR RIGHT 2VW(Performed 12/02/2022) Performed for Closed fracture of shaft of right femur, unspecified fracture morphology, initial encounter ([facility]) * PHOSPHORUS BLOOD(Performed 11/19/2022) * MAGNESIUM BLOOD(Performed 11/19/2022) * CBC W/O DIFFERENTIAL(Performed 11/19/2022) * BASIC METABOLIC PANEL (CALCIUM TOTAL)(Performed 11/19/2022) * CT ELBOW RIGHT WO CONTRAST(Performed 11/18/2022) Performed for Closed fracture of shaft of right femur, unspecified fracture morphology, initial encounter ([facility]) * XR SHOULDER RIGHT 2VW OR MORE(Performed 11/18/2022) Performed for Fall, initial encounter * PHOSPHORUS BLOOD(Performed 11/18/2022) * MAGNESIUM BLOOD(Performed 11/18/2022) * CBC W/O DIFFERENTIAL(Performed 11/18/2022) * BASIC METABOLIC PANEL (CALCIUM TOTAL)(Performed 11/18/2022) * FL AILYN SURGERY(Performed 11/17/2022) Performed for Closed fracture of shaft of right femur, unspecified fracture morphology, initial encounter ([facility]) * XR FEMUR RIGHT 2VW(Performed 11/17/2022) Performed for Closed fracture of shaft of right femur, unspecified fracture morphology, initial encounter ([facility]) * ENDOTRACHEAL TUBE NOTE(Performed 11/17/2022) * WI OPEN RX FEMUR FX+INTRAMED BREANNE(Performed 11/17/2022) Performed for Closed fracture of right femur, unspecified fracture morphology, unspecified portion of femur, initial encounter ([facility]) * XR ELBOW RIGHT 3VW OR MORE(Performed 11/17/2022) Performed for Fall, initial encounter * URINE DRUG SCREEN IMMUNOASSAY(Performed 11/17/2022) * CT 3D RECON W INDEPENDENT WKSN(Performed 11/17/2022) Performed for Fall, initial encounter * BLOOD TYPE VERIFICATION(Performed 11/17/2022) * PHOSPHORUS BLOOD(Performed 11/17/2022) * MAGNESIUM BLOOD(Performed 11/17/2022) * CBC W/O DIFFERENTIAL(Performed 11/17/2022) * BASIC METABOLIC PANEL (CALCIUM TOTAL)(Performed 11/17/2022) * XR FEMUR RIGHT 2VW(Performed 11/17/2022) Performed for Closed fracture of shaft of right femur, unspecified fracture morphology, initial encounter ([facility]) * XR KNEE RIGHT 2VW OR LESS(Performed 11/16/2022) Performed for Closed fracture of shaft of right femur, unspecified fracture morphology, initial encounter ([facility]) * ED SEDATION(Performed 11/16/2022) * XR ELBOW RIGHT 3VW OR MORE(Performed 11/16/2022) Performed for Fall, initial encounter * CT FACIAL BONES WO CONTRAST(Performed 11/16/2022) Performed for Fall, initial encounter * CT LUMBAR SPINE WO CONTRAST(Performed 11/16/2022) Performed for Fall, initial encounter * CT THORACIC SPINE WO CONTRAST(Performed 11/16/2022) Performed for Fall, initial encounter * CT CHEST ABDOMEN PELVIS W CONT(Performed 11/16/2022) Performed for Fall, initial encounter * CT CERVICAL SPINE WO CONTRAST(Performed 11/16/2022) Performed for Fall, initial encounter * CT HEAD WO CONTRAST(Performed 11/16/2022) Performed for Fall, initial encounter * XR KNEE RIGHT 2VW OR LESS(Performed 11/16/2022) Performed for Fall, initial encounter * XR FEMUR RIGHT 2VW(Performed 11/16/2022) Performed for Fall, initial encounter * XR PELVIS 1 OR 2VW(Performed 11/16/2022) Performed for Fall, initial encounter * XR CHEST 1VW PORTABLE(Performed 11/16/2022) Performed for Fall, initial encounter * TYPE + SCREEN PANEL(Performed 11/16/2022) * VITAMIN D 25-HYDROXY(Performed 11/16/2022) * BASIC METABOLIC PANEL (CALCIUM TOTAL)(Performed 11/16/2022) * PT-INR [facility](Performed 11/16/2022) * CBC W AUTO DIFFERENTIAL(Performed 11/16/2022) * ALCOHOL ETHYL BLOOD(Performed 11/16/2022) Results * XR FEMUR RIGHT 2VW (05/24/2023 8:00 AM [employer]) Only the most recent of8 resultswithin the time period is included. Anatomical Region Laterality Modality Lower Extremity Radiographic Shahla ging 05/24/2023 8:41 AM [employer] Impressions 05/24/2023 9:26 AM [employer] IMPRESSION: Unchanged alignment. Report dictated by John Rhoades MD (co founder and president). I, Robert Brooke MD have personally reviewed and interpreted this examination/study. > Interpreting Provider: Robert Brooke MD on 05/24/2023 9:26 AM Narrative 05/24/2023 9:26 AM [employer] PROCEDURE: ??XR FEMUR RIGHT 2VW, DATE/TIME OF EXAM: ??05/24/2023 8:00 AM, LOCATION ??[facility] INDICATION: S72.301A: Closed fracture of shaft of right femur, unspecified fracture morphology, initial encounter ([facility]) ADDITIONAL CLINICAL INFORMATION: Ordering Provider Reason For Exam: ??CLOSED FX OF RIGHT FEMUR COMPARISON: Right femur radiograph 03/21/2023. FINDINGS: Redemonstrated internal fixation of the femur with retrograde intramedullary nail and screws. Hardware is intact and the alignment is unchanged. Callus has slightly progressed, most notably along the anterior femur. Procedure Note oRbert Brooke MD - 05/24/2023 PROCEDURE: XR FEMUR RIGHT 2VW, DATE/TIME OF EXAM: 05/24/2023 8:00 AM, LOCATION [facility] INDICATION: S72.301A: Closed fracture of shaft of right femur, unspecified fracture morphology, initial encounter ([facility]) ADDITIONAL CLINICAL INFORMATION: Ordering Provider Reason For Exam: CLOSED FX OF RIGHT FEMUR COMPARISON: Right femur radiograph 03/21/2023. FINDINGS: Redemonstrated internal fixation of the femur with retrograde intramedullary nail and screws. Hardware is intact and the alignment is unchanged. Callus has slightly progressed, most notably along theanterior femur. IMPRESSION: Unchanged alignment. Report dictated by John Rhoades MD (co founder and president). I, Robert Brooke MD have personally reviewed and interpreted this examination/study. > Interpreting Provider: Robert Brooke MD on 05/24/2023 9:26 AM Jacoby Sosa MD DIAGNOSTIC IMAGING O RDERABLES * MRI KNEE RIGHT WO CONTRAST (02/13/2023 10:53 AM [employer]) Anatomical Region Laterality Modality Lower Extremity Magnetic Resonan ce 02/13/2023 11:0 2 AM [employer] Impressions 02/13/2023 11:26 AM [employer] Impression: ?? 1. Femoral intramedullary nail. 2. Moderate bone marrow edema within the visualized distal femur. Increased intracortical signal at the anterior cortex of the distal femur with associated periosteal reaction and overlying periosteal edema. These findings could be posttraumatic and post procedural; osteomyelitis cannot be excluded. 3. Horizontal tear in the posterior horn and body of the medial meniscus. 4. Mild medial compartment arthritis. 5. Area of increased signal within the patellar cartilage with underlying bone marrow edema. This could represent contusion or early arthritis. 6. Postprocedural changes in the patellar tendon and Hoffa's fat. > Interpreting Provider: Robert Brooke MD on 02/13/2023 11:26 AM Narrative 02/13/2023 11:26 AM [employer] PROCEDURE: ??MRI KNEE RIGHT WO CONTRAST DATE/TIME OF EXAM: ??02/13/2023 10:53 AM CLINICAL INFORMATION: None relevant/not provided if blank. Indication: S72.301A: Closed fracture of shaft of right femur, unspecified fracture morphology, initial encounter ([facility]) Additional History: meniscus injury verses ligament tear COMPARISON: Right knee x-rays dated 11/16/2022. TECHNIQUE: MRI of the right knee was performed without contrast. Metal suppression protocol was used. FINDINGS: There is retrograde intramedullary nail and screws are present in the distal femur. There is associated metallic artifact. The anterior and posterior cruciate ligaments are intact. ?? The medial collateral ligament is intact. ?? The biceps femoris tendon, fibular collateral ligament, and iliotibial band are intact. ??The popliteus muscle and tendon are intact. ?? In the medial femorotibial compartment, there is mild to moderate articular cartilage thinning and irregularity. There is a horizontal tear in the posterior horn of the meniscus extending into the body. In the lateral femorotibial compartment, the articular cartilage is normal in thickness without defect. ??There is no lateral meniscal tear. ?? In the patellofemoral compartment, there is an area of increased signal within the patellar cartilage at the median ridge/medial facet measuring 1.1 cm in transverse diameter with underlying bone marrow edema (series 3 image 12) which could represent contusion or early arthritic change. The trochlear cartilage is intact. The patella is normally positioned, and the patella and femoral trochlea are normal in morphology. ??The medial and lateral patellar retinacula are intact. ??The distal quadriceps tendon is normal. There is thickening and increased signal of the patellar tendon and edema within Hoffa's fat, likely postprocedural. There is no knee effusion. There is moderate intensity bone marrow edema in the visualized distal femoral metaphysis and to a lesser extent in the condyles. Periosteal reaction is seen along the anterior cortex of the distal femoral shaft. There is increased intracortical signal in this region. There is overlying periosteal edema. There is mild bone marrow edema in the fibular head. There is soft tissue edema, greater in the distal thigh and greatest in the vastus lateralis muscle. Procedure Note Robert Brooke MD - 02/13/2023 PROCEDURE: MRI KNEE RIGHT WO CONTRAST DATE/TIME OF EXAM: 02/13/2023 10:53 AM CLINICAL INFORMATION: None relevant/not provided if blank. Indication: S72.301A: Closed fracture of shaft of right femur,unspecified fracture morphology, initial encounter ([facility]) Additional History: meniscus injury verses ligament tear COMPARISON: Right knee x-rays dated 11/16/2022. TECHNIQUE: MRI of the right knee was performed without contrast. Metal suppression protocol was used. FINDINGS: There is retrograde intramedullary nail and screws are present in the distal femur. There is associated metallic artifact. The anterior and posterior cruciate ligaments are intact. The medial collateral ligament is intact. The biceps femoris tendon, fibular collateral ligament, and iliotibialband are intact. The popliteus muscle and tendon are intact. In the medial femorotibial compartment, there is mild to moderatearticular cartilage thinning and irregularity. There is a horizontal tear in the posterior horn of the meniscus extending into the body. In the lateral femorotibial compartment, the articular cartilage isnormal in thickness without defect. There is no lateral meniscal tear. In the patellofemoral compartment, there is an area of increased signal within the patellar cartilage at the median ridge/medial facet measuring 1.1 cm in transverse diameter with underlying bone marrow edema (series3 image 12) which could represent contusion or early arthritic change. The trochlear cartilage is intact. The patella is normally positioned, andthe patella and femoral trochlea are normal in morphology. The medial and lateral patellar retinacula are intact. The distal quadriceps tendon is normal. There is thickening and increased signal of the patellar tendonand edema within Hoffa's fat, likely postprocedural. There is no knee effusion. There is moderate intensity bone marrow edema in the visualized distal femoral metaphysis and to a lesser extent in the condyles. Periosteal reaction is seen along the anterior cortex of the distal femoral shaft. There is increased intracortical signal in this region. There isoverlying periosteal edema. There is mild bone marrow edema in the fibular head. There is soft tissue edema, greater in the distal thigh and greatest inthe vastus lateralis muscle. Impression: 1. Femoral intramedullary nail. 2. Moderate bone marrow edema within the visualized distal femur.Increased intracortical signal at the anterior cortex of the distal femur with associated periosteal reaction and overlying periosteal edema. These findings could be posttraumatic and post procedural; osteomyelitiscannot be excluded. 3. Horizontal tear in the posterior horn and body of the medialmeniscus. 4. Mild medial compartment arthritis. 5. Area of increased signal within the patellar cartilage withunderlying bone marrow edema. This could represent contusion or early arthritis. 6. Postprocedural changes in the patellar tendon and Hoffa's fat. > Interpreting Provider: Robert Brooke MD on 02/13/2023 11:26 AM Jacoby Sosa MD MR ORDERABLES * CT HEAD WO CONTRAST (12/27/2022 8:47 AM CDT) Only the most recent of2 resultswithin the time period is included. Anatomical Region Laterality Modality Head Computed Tomogra phy 12/27/2022 9:23 AM CDT Impressions 12/27/2022 10:04 AM CDT IMPRESSION: 1. No acute intracranial process. 2. There is been interval resolution of the previously seen areas of pneumocephalus. 3. Demonstration of multiple facial fractures as described above. The report is dictated by Olga Gutierrez Dr, MD (co founder and president) I, Arian Lance MD have personally reviewed and interpreted this examination/study. > Interpreting Provider: Arian Lance MD on 12/27/2022 10:04 AM Narrative 12/27/2022 10:04 AM CDT PROCEDURE: ??CT HEAD WO CONTRAST, DATE/TIME OF EXAM: ??12/27/2022 8:48 AM, LOCATION ??[facility] INDICATION: S72.301A: Closed fracture of shaft of right femur, unspecified fracture morphology, initial encounter ([facility]) ADDITIONAL CLINICAL INFORMATION: Ordering Provider Reason For Exam: ??pneumocephalus Technologist Note: Additional: EXAMINATION: Computed tomography (CT) of the head without contrast TECHNIQUE: CT of the head was performed without contrast according to standard protocol. CT dose reduction technique was used, including Automated Exposure Control. COMPARISON: No prior study is available for comparison at the time of this dictation. FINDINGS: No acute intracranial hemorrhage or intra- or extra-axial fluid collections are identified. The ventricles are of normal size, shape, and morphology. The basal cisterns are patent. No mass effect or midline shift is seen. The [place]-white matter differentiation is normal. The visualized portions of the orbits, paranasal sinuses, and mastoids appear normal. Many of the previously seen facial fractures are not as well-visualized on this exam, however There is redemonstration of fractures along the lateral wall of the left orbit, left zygomatic arch, anterior portion of the left maxillary sinus, and right greater sphenoid wing. External occipital protuberance is noted. Procedure Note Arian Lance MD - 12/27/2022 PROCEDURE: CT HEAD WO CONTRAST, DATE/TIME OF EXAM: 12/27/2022 8:48 AM, LOCATION [facility] INDICATION: S72.301A: Closed fracture of shaft of right femur, unspecified fracture morphology, initial encounter ([facility]) ADDITIONAL CLINICAL INFORMATION: Ordering Provider Reason For Exam: pneumocephalus Technologist Note: Additional: EXAMINATION: Computed tomography (CT) of the head without contrast TECHNIQUE: CT of the head was performed without contrast according to standard protocol. CT dose reduction technique was used, including Automated Exposure Control. COMPARISON: No prior study is available for comparison at the time ofthis dictation. FINDINGS: No acute intracranial hemorrhage or intra- or extra-axial fluidcollections are identified. The ventricles are of normal size, shape, andmorphology. The basal cisterns are patent. No mass effect or midline shift is seen.The madrid-white matter differentiation is normal. The visualized portions of the orbits, paranasal sinuses, and mastoids appear normal. Many of the previously seen facial fractures are not as well-visualizedon this exam, however There is redemonstration of fractures along thelateral wall of the left orbit, left zygomatic arch, anterior portion of theleft maxillary sinus, and right greater sphenoid wing. External occipital protuberance is noted. IMPRESSION: 1. No acute intracranial process. 2. There is been interval resolution of the previously seen areas of pneumocephalus. 3. Demonstration of multiple facial fractures as described above. The report is dictated by Olga Gutierrez Dr, MD (co founder and president) I, Arian Lance MD have personally reviewed and interpreted this examination/study. > Interpreting Provider: Arian Lance MD on 12/27/2022 10:04 AM Gabriela Antonio PARTS PERSON-INSPECTOR [employer] CT ORDERABLES * (ABNORMAL) CBC W/O DIFFERENTIAL (11/19/2022 2:19 AM CDT) Only the most recent of3 resultswithin the time period is included. WBC 10.5 3.5 - 10.5 10? 3 /uL 11/19/2022 3:15 AM [facility] RBC 3.07(L) 4.30 - 5.70 10? 6 /uL 11/19/2022 3:15 AM [facility] Hemoglobin 10.2(L) 12.0 - 17.6 g/dL 11/19/2022 3:15 AM [facility] Hematocrit 29.2(L) 35.2 - 51.7 % 11/19/2022 3:15 AM [facility] MCV 95.1 80.7 - 98.3 fL 11/19/2022 3:15 AM [facility] MCH 33.2 26.7 - 34.0 pg 11/19/2022 3:15 AM [facility] MCHC 34.9 30.8 - 35.9 g/dL 11/19/2022 3:15 AM [facility] RDW-SD 41.1 36.0 - 50.0 fL 11/19/2022 3:15 AM [facility] RDW-CV 11.9 11.2 - 14.8 % 11/19/2022 3:15 AM [facility] Platelet Count 151 150 - 400 10? 3 /uL 11/19/2022 3:15 AM [facility] MPV 11.1 9.4 - 12.9 fL 11/19/2022 3:15 AM [facility] nRBC Absolute 0.00 0 10? 3 /uL 11/19/2022 3:15 AM [facility] nRBC Auto 0.0 0 /100 WBC 11/19/2022 3:15 AM [facility] Blood BLOOD SPECIMEN / Unknown Lab Venipuncture / Unknown 11/19/2022 2:19 AM CDT 11/19/2022 3:04 AM T Usman Araiza MD LAB - HEMATOLOGY ORD ERABLES [facility] [address] [place] [address], [facility] [phone] * (ABNORMAL) BASIC METABOLIC PANEL (CALCIUM TOTAL) (11/19/2022 2:19 AM CDT) Only the most recent of4 resultswithin the time period is included. BUN 10 7 - 26 mg/dL 11/19/2022 3:30 AM [facility] Creatinine 0.74 0.71 - 1.16 mg/dL 11/19/2022 3:30 AM [facility] Sodium 133(L) 136 - 145 mmol/L 11/19/2022 3:30 AM [facility] Potassium 4.0 3.5 - 4.5 mmol/L 11/19/2022 3:30 AM [facility] Chloride 100 98 - 107 mmol/L 11/19/2022 3:30 AM [facility] CO2 27 22 - 29 mmol/L 11/19/2022 3:30 AM [facility] Glucose 101 70 - 115 mg/dL 11/19/2022 3:30 AM [facility] Calcium 8.4 8.4 - 10.2 mg/dL 11/19/2022 3:30 AM [facility] Anion Gap 10 8 - 18 11/19/2022 3:30 AM [facility] BUN/Creatinine Ratio 14 7 - 23 11/19/2022 3:30 AM [facility] Osmolality Calculated 275 270 - 300 mOsm/kg 11/19/2022 3:30 AM [facility] eGFR by CKD-EPI >90 >=90 mL/min/1.7 3 m2 11/19/2022 3:30 AM [facility] Blood BLOOD SPECIMEN / Unknown Lab Venipuncture / Unknown 11/19/2022 2:19 AM CDT 11/19/2022 3:04 AM T Usman Araiza MD LAB - CHEMISTRY [facility] Organization Address City/State/ZIP Co de Phone Number [facility] [address] [place] [address], [facility] [phone] * (ABNORMAL) PHOSPHORUS BLOOD (11/19/2022 2:19 AM CDT) Only the most recent of3 resultswithin the time period is included. Phosphorus 1.8(L) 2.8 - 5.1 mg/dL 11/19/2022 3:30 AM CDT [facility] Blood BLOOD SPECIMEN / Unknown Lab Venipuncture / Unknown 11/19/2022 2:19 AM CDT 11/19/2022 3:04 AM CDT Usman Araiza MD LAB - CHEMISTRY [place] Performing Organization Address City/[facility]/ZIP Co de Phone Number [address] [address], [facility] [phone] * MAGNESIUM BLOOD (11/19/2022 2:19 AM CDT) Only the most recent of3 resultswithin the time period is included. Magnesium 1.8 1.6 - 2.6 mg/dL 11/19/2022 3:30 AM CDT [facility] Blood BLOOD SPECIMEN / Unknown Lab Venipuncture / Unknown 11/19/2022 2:19 AM CDT 11/19/2022 3:04 AM CDT Usman Araiza MD LAB - CHEMISTRY [place] Performing Organization Address City/[facility]/ZIP Co de Phone Number [address] [address], [place] [phone] * CT ELBOW RIGHT WO CONTRAST (11/18/2022 8:18 AM CDT) Anatomical Region Laterality Modality Upper Extremity Computed Tomogra phy 11/18/2022 9:34 AM CDT Impressions 11/18/2022 10:02 AM CDT IMPRESSION: 1. Small osseous fragments of the coronoid and olecranon process of the right elbow, corticated and are age indeterminate, favored to be chronic in nature. Recommend correlation with focal tenderness. 2. There is an 8 mm loose body in the elbow joint. Report dictated by Torin Camilo MD (co founder and president) I, Juan C Gupta MD have personally reviewed and interpreted this examination/study. > Interpreting Provider: Juan C Gupta MD on 11/18/2022 10:02 AM Narrative 11/18/2022 10:02 AM CDT PROCEDURE: ??CT ELBOW RIGHT WO CONTRAST, DATE/TIME OF EXAM: ??11/18/2022 8:19 AM, LOCATION ??[facility] INDICATION: S72.301A: Closed fracture of shaft of right femur, unspecified fracture morphology, initial encounter ([facility]) ADDITIONAL CLINICAL INFORMATION: Ordering Provider Reason For Exam: ??fx TECHNIQUE: CT of the elbow was obtained without intravenous contrast. COMPARISON: Elbow radiograph dated 11/17/2022 FINDINGS: Redemonstration of a small bony fragment at the coronoid process, that appears corticated and is age-indeterminate. There is a similar-appearing corticated osseous fragment at the tip of the olecranon process, also age indeterminate. Additional 8mm intra-articular corticated fragment (series 4 image 181) is unclear of donor site, representing an intra-articular loose body. The elbow joint is anatomical alignment. Adjacent soft tissue swelling is present. Procedure Note Juan C Gupta MD - 11/18/2022 PROCEDURE: CT ELBOW RIGHT WO CONTRAST, DATE/TIME OF EXAM: 38:19 AM, LOCATION [facility] INDICATION: S72.301A: Closed fracture of shaft of right femur, unspecified fracture morphology, initial encounter ([facility]) ADDITIONAL CLINICAL INFORMATION: Ordering Provider Reason For Exam: fx TECHNIQUE: CT of the elbow was obtained without intravenous contrast. COMPARISON: Elbow radiograph dated 11/17/2022 FINDINGS: Redemonstration of a small bony fragment at the coronoid process, that appears corticated and is age-indeterminate. There is asimilar-appearing corticated osseous fragment at the tip of the olecranon process, alsoage indeterminate. Additional 8mm intra-articular corticated fragment (series 4 image 181)is unclear of donor site, representing an intra-articular loose body. The elbow joint is anatomical alignment. Adjacent soft tissue swellingis present. IMPRESSION: 1. Small osseous fragments of the coronoid and olecranon process of the right elbow, corticated and are age indeterminate, favored to be chronicin nature. Recommend correlation with focal tenderness. 2. There is an 8 mm loose body in the elbow joint. Report dictated by Torin Camilo MD (co founder and president) Juan C Ferguson MD have personally reviewed and interpreted this examination/study. > Interpreting Provider: Juan C Gupta MD on 11/18/2022 10:02 AM Darian Wilkinson MD CT ORDERABLES * XR SHOULDER RIGHT 2VW OR MORE (11/18/2022 6:42 AM CDT) Anatomical Region Laterality Modality Upper Extremity Radiographic Shahla ging 11/18/2022 1:01 PM CDT Narrative 11/18/2022 2:28 PM CDT PROCEDURE: ??XR SHOULDER RIGHT 2VW OR MORE, DATE/TIME OF EXAM: ??11/18/2022 6:42 AM, LOCATION ??[facility] INDICATION: W19.XXXA: Fall, initial encounter ADDITIONAL CLINICAL INFORMATION: Ordering Provider Reason For Exam: ??shoulder pain COMPARISON: None. FINDINGS/IMPRESSION: The osseous structures are intact without acute fracture. The glenohumeral and acromioclavicular joints are in anatomic alignment. Bone density and texture are normal. ?? Report dictated by Charlette Nowak DO (co founder and president). Juan C Ferguson MD have personally reviewed and interpreted this examination/study. > Interpreting Provider: Juan C Gupta MD on 11/18/2022 2:28 PM Procedure Note Juan C Gupta MD - 11/18/2022 PROCEDURE: XR SHOULDER RIGHT 2VW OR MORE, DATE/TIME OF EXAM: 11/18/2022 6:42 AM, LOCATION [facility] INDICATION: W19.XXXA: Fall, initial encounter ADDITIONAL CLINICAL INFORMATION: Ordering Provider Reason For Exam: shoulder pain COMPARISON: None. FINDINGS/IMPRESSION: The osseous structures are intact without acute fracture. Theglenohumeral and acromioclavicular joints are in anatomic alignment. Bone density and texture are normal. Report dictated by Charlette Nowak DO (co founder and president). Juan C Ferguson MD have personally reviewed and interpreted this examination/study. > Interpreting Provider: Juan C Gupta MD on 11/18/2022 2:28 PM Darian Wilkinson MD DIAGNOSTIC IMAGING ORDERABLES * FL AILYN SURGERY (11/17/2022 3:57 PM CDT) Narrative [facility] - 11/17/2022 3:57 PM CDT Fluoroscopy was used for this exam in the OR. Please see the Operative report. Jacoby Sosa MD FLUOROSCOPY ORDERABL ES [facility] * ETT LINE PERFORMABLE (11/17/2022 2:36 PM CDT) Narrative Jacoby Gonzalez MD - 11/17/2022 2:36 PM CDT Jacoby Gonzalez MD ? 11/17/2022 ??4:41 PM Endotracheal Tube Placement: ? Patient Location: OR. Intubation Event Date/Time: ??11/17/2022 2:16 PM Procedure: intubation ([id number]). Procedure Section: ?? Sedation: under general anesthesia. Indications for Airway Management: ??anesthesia Procedure pretreatments used? ??No Induction: standard IV Patient Position: ??sniffing Mask Ventilation: easy. Blade Type: [place] Blade Size: 2 Laryngoscopy View: grade 1 (full cords) Intubation Adjuncts: stylet Tube: endotracheal tube Placement: oral Tube type: cuff - inflated Tube Size (MM): 7 Depth of Insertion (CM): 22 Measured From: lips Cuff volume (mL): ??7 Cuff Inflated With: air Number of Attempts: 1. Placement Verified By: direct visualization, bilateral breath sounds, chest auscultation and CO2 monitor CXR Findings: ETT in proper place. Dentition unchanged? ??Yes Difficult Airway? ??No. Procedure Start Time: 11/17/2022 2:16 PM. Staff Section ? Anesthesia Provider: Jacoby Gonzalez MD, Performed the procedure Jacoby Gonzalez MD GENERAL ANESTHESIA O RDERABLES * XR ELBOW RIGHT 3VW OR MORE (11/17/2022 10:08 AM CDT) Only the most recent of2 resultswithin the time period is included. Anatomical Region Laterality Modality Upper Extremity Radiographic Shahla ging 11/17/2022 10:1 9 AM CDT Narrative 11/17/2022 10:54 AM CDT PROCEDURE: ??XR ELBOW RIGHT 3VW OR MORE, DATE/TIME OF EXAM: ??11/17/2022 10:08 AM, LOCATION ??[facility] INDICATION: W19.XXXA: Fall, initial encounter ADDITIONAL CLINICAL INFORMATION: Ordering Provider Reason For Exam: ??fx COMPARISON: 11/16/2022 right elbow radiograph FINDINGS/IMPRESSION: Splint material is present, obscuring some soft tissue and osseous detail. Possible fracture of the coronoid process is in unchanged alignment. Report dictated by Charlette Nowak DO (co founder and president). Maria De Jesus Ferguson MD have personally reviewed and interpreted this examination/study. > Interpreting Provider: Maria De Jesus Mata MD on 11/17/2022 10:54 AM Procedure Note Maria De Jesus Mata MD - 11/17/2022 PROCEDURE: XR ELBOW RIGHT 3VW OR MORE, DATE/TIME OF EXAM: 0:08 AM, LOCATION [facility] INDICATION: W19.XXXA: Fall, initial encounter ADDITIONAL CLINICAL INFORMATION: Ordering Provider Reason For Exam: fx COMPARISON: 11/16/2022 right elbow radiograph FINDINGS/IMPRESSION: Splint material is present, obscuring some soft tissue and osseousdetail. Possible fracture of the coronoid process is in unchanged alignment. Report dictated by Charlette Nowak DO (co founder and president). Maria De Jesus Ferguson MD have personally reviewed and interpreted this examination/study. > Interpreting Provider: Maria De Jesus Mata MD on 11/17/2022 10:54 AM Haim Castro MD DIAGNOSTIC IMAGING O RDERABLES * (ABNORMAL) URINE DRUG SCREEN IMMUNOASSAY (11/17/2022 8:34 AM CDT) [facility] Amphetamines Screen Urine Negative Negative : < 1000 ng/mL 11/17/2022 9:02 AM CDT [facility] Barbiturates Screen Urine Negative Negative : < 200 ng/mL 11/17/2022 9:02 AM [facility] Benzodiazepine Screen Urine Negative Negative : < 200 ng/mL 11/17/2022 9:02 AM [facility] Opiates Urine Positive(A) Negative : < 300 ng/mL 11/17/2022 9:02 AM [facility] Comment:Positive urine opiat e screening results should be confirmed by another generally accepted non-immunological method such as gas chromatography or mass spectrometry. Cocaine Metabolites Urine Negative Negative : < 300 ng/mL 11/17/2022 9:02 AM [facility] Phencyclidine Screen Urine Negative Negative : < 25 ng/ml 11/17/2022 9:02 AM [facility] Cannabinoids Screen Urine Negative Negative : <50 ng/mL 11/17/2022 9:02 AM [facility] Methadone Screen Urine Negative Negative : < 300 ng/mL 11/17/2022 9:02 AM [facility] Fentanyl Screen Urine Negative Negative : <1.5 ng/mL 11/17/2022 9:02 AM [facility] Urine URINE / Unknown Collection / Unknown 11/17/2022 8:34 AM T 11/17/2022 8:38 AM [facility] - 11/17/2022 9:02 AM [facility] The Urine Toxicology Screening Panel does not screen for Propoxyphene, Meprobamate, Carisoprodol, Trazodone, urov-giy-qmiwiov medications and/or volatiles (Acetone, Isopropanol, Methanol or Ethylene Glycol). Ethanol, Salicylate, Acetaminophen, Tricyclic Antidepressants and several therapeutic drugs may be individually assayed in serum or plasma specimen. Toxicology testing by the [facility] is an aid to medical diagnosis and treatment of patients. No documented chain of custody was maintained. Results are intended to be used for clinical purposes only. ? Tad Booker MD LAB - URINE CHEMISTR Y ORDERABLES Performing Organization Address City/State/[facility] Co de Phone Number [facility] [address] [place] [address], [facility] [phone] * CT 3D RECON W INDEPENDENT WKSN (11/17/2022 7:38 AM CDT) Anatomical Region Laterality Modality Computed Tomogra phy 11/17/2022 7:41 AM CDT Narrative 11/17/2022 7:47 AM CDT PROCEDURE: ??CT 3D RECON W INDEPENDENT WKSN DATE/TIME OF EXAM: ??11/17/2022 7:38 AM CLINICAL INFORMATION: None relevant/not provided if blank. Indication: W19.XXXA: Fall, initial encounter TECHNIQUE: TECHNIQUE: Three-dimensional shaded surface rendering of the facial bones was performed by a technologist on a separate three-dimensional workstation at the request of the referring physician and submitted for review. COMPARISON: Comparison is made with CT of the face from 11/16/2022. FINDINGS - IMPRESSION: The three-dimensional images confirm the findings of nondisplaced fractures involving the left zygomatic arch, bilateral maxillary sinuses, left lateral orbital wall, are more conspicuous on prior two-dimensional CT, please refer to CT face from 11/16/2022 for additional details. > Interpreting Provider: Samantha Montano MD on 11/17/2022 7:47 AM Procedure Note Samantha Montano MD - 11/17/2022 PROCEDURE: CT 3D RECON W INDEPENDENT WKSN DATE/TIME OF EXAM: 11/17/2022 7:38 AM CLINICAL INFORMATION: None relevant/not provided if blank. Indication: W19.XXXA: Fall, initial encounter TECHNIQUE: TECHNIQUE: Three-dimensional shaded surface rendering of the facialbones was performed by a technologist on a separate three-dimensionalworkstation at the request of the referring physician and submitted for review. COMPARISON: Comparison is made with CT of the face from 11/16/2022. FINDINGS - IMPRESSION: The three-dimensional images confirm the findings of nondisplacedfractures involving the left zygomatic arch, bilateral maxillary sinuses, left lateral orbital wall, are more conspicuous on prior two-dimensional CT, please refer to CT face from 11/16/2022 for additional details. > Interpreting Provider: Samantha Montano MD on 11/17/2022 7:47 AM Haim Castro MD CT ORDERABLES * BLOOD TYPE VERIFICATION (11/17/2022 5:35 AM CDT) ABO Rh O POS 11/17/2022 6:1 7 AM CDT [facility] Blood Bank BLOOD SPECIMEN / Unknown 11/17/2022 5:35 AM CDT 11/17/2022 5:52 AM CDT Tad Booker MD LAB - BLOOD BANK ORD ERABLES [facility] [address] [place] [address], [facility] [phone] * XR KNEE RIGHT 2VW OR LESS (11/16/2022 11:40 PM CDT) Only the most recent of2 resultswithin the time period is included. Anatomical Region Laterality Modality Lower Extremity Radiographic Shahla ging 11/17/2022 4:15 AM CDT Narrative 11/17/2022 7:00 AM CDT PROCEDURE: ??XR KNEE RIGHT 2VW OR LESS, DATE/TIME OF EXAM: ??11/16/2022 11:40 PM, LOCATION ??[facility] INDICATION: S72.301A: Closed fracture of shaft of right femur, unspecified fracture morphology, initial encounter ([facility]) ADDITIONAL CLINICAL INFORMATION: Ordering Provider Reason For Exam: ??S/p traction Technologist Note: Additional: COMPARISON: None. FINDINGS/IMPRESSION: Interval placement of an extra fixation breanne in the proximal tibia. Otherwise, no acute osseous abnormality.. Report dictated by Luis A Peres DO (co founder and president). Venkatesh Ferguson MD have personally reviewed and interpreted this examination/study. > Interpreting Provider: Venkatesh Velasquez MD on 11/17/2022 7:00 AM Procedure Note Venkatesh Velasquez MD - 11/17/2022 PROCEDURE: XR KNEE RIGHT 2VW OR LESS, DATE/TIME OF EXAM: 1:40 PM, LOCATION [facility] INDICATION: S72.301A: Closed fracture of shaft of right femur, unspecified fracture morphology, initial encounter ([facility]) ADDITIONAL CLINICAL INFORMATION: Ordering Provider Reason For Exam: S/p traction Technologist Note: Additional: COMPARISON: None. FINDINGS/IMPRESSION: Interval placement of an extra fixation breanne in the proximal tibia. Otherwise, no acute osseous abnormality.. Report dictated by Luis A Peres DO (co founder and president). Venkatesh Ferguson MD have personally reviewed and interpreted this examination/study. > Interpreting Provider: Venkatesh Velasquez MD on 37:00 AM Usman Araiza MD DIAGNOSTIC IMAGING O RDERABLES * Sedation (11/16/2022 11:36 PM CDT) Narrative Usman Araiza MD - 11/16/2022 11:36 PM CDT Nick Washington MD ? 11/16/2022 11:40 PM Sedation Date/Time: 11/16/2022 11:36 PM Performed by: Nick Washington MD Authorized by: Usman Araiza MD ??Consent: Verbal consent obtained. Risks and benefits: risks, benefits and alternatives were discussed Consent given by: patient Patient understanding: patient states understanding of the procedure being performed Patient identity confirmed: verbally with patient Time out: Immediately prior to procedure a time out was called to verify the correct patient, procedure, equipment, underwriting support specialist and site/side marked as required. Likelihood of discomfort Low Ability to remain immobile Good Anticipated level of sedation Moderate History of sleep apnea/snoring No Limited ROM-head,mouth,neck c-collar on. Sedation: Patient sedated: yes Sedation type: moderate (conscious) sedation Sedatives: ketamine Vitals: Vital signs were monitored during sedation. Patient tolerance: patient tolerated the procedure well with no immediate complications Usman Araiza MD PROCEDURE/MINOR SURG ICAL ORDERABLES * CT CHEST ABDOMEN PELVIS W CONT - Abdomen-pelvis trauma, blunt or penetrating (11/16/2022 9:17 PM CDT) Anatomical Region Laterality Modality Chest, Abdomen, Pelvis Computed Tomography 11/16/2022 9:19 PM CDT Impressions 11/17/2022 12:13 AM CDT Impression: 1.No acute visceral, vascular, or osseus injury identified in the chest, abdomen, or pelvis. > Dictated by Luis A Peres DO (co founder and president). Wallace Ferguson MD have personally reviewed and interpreted this examination/study. > Interpreting Provider: Wallace Brasher MD on 11/17/2022 12:13 AM Narrative 11/17/2022 12:13 AM CDT PROCEDURE: ??CT CHEST ABDOMEN PELVIS W CONT, DATE/TIME OF EXAM: ??11/16/2022 9:19 PM, LOCATION ??[facility] INDICATION: Trauma COMPARISON: None. TECHNIQUE: CT of the chest, abdomen, and pelvis was performed after the uneventful administration of 100 mL of Isovue 370 intravenous contrast according to standard protocol. Findings: Chest: Lower Neck and Axillae: Normal. Lungs: No pulmonary parenchymal or airway process is present. No suspicious pulmonary nodules are identified. No pleural fluid or pneumothorax is present. Heart and Pericardium: The cardiac chambers are normal in size. No pericardial fluid or thickening is present. Mediastinum and Vicky: No mediastinal hemorrhage is present. No enlarged lymph nodes are present. Thoracic Vasculature: No vascular abnormality is present. Abdomen/pelvis: Liver: Normal. Gallbladder and Bile Ducts: Normal. Spleen: Normal. Pancreas: Normal. Adrenals: Normal. Kidneys: Normal. Gastrointestinal: The stomach and visualized loops of large and small bowel are unremarkable. Normal appendix. Mesentery/Peritoneum/Retroperitoneum: No free intraperitoneal air. No free fluid in the abdomen or pelvis. Pelvis: The bladder is normal. The prostate is normal. There is no free pelvic fluid. Abdominal Vasculature: No vascular abnormality is present. Bones: Bone windows demonstrate no suspicious lytic or blastic lesions. No acute fractures. Fusion of the C7 and T1 vertebral bodies. Chronic deformity of the posterior left 11th and 12th ribs. Degenerative changes throughout the spine. Chronic bilateral pars defects at L5 with grade 1 anterolisthesis of L5 on S1. Soft tissues: Normal. Procedure Note Ambar Brasher MD - 11/17/2022 PROCEDURE: CT CHEST ABDOMEN PELVIS W CONT, DATE/TIME OF EXAM:11/16/2022 9:19 PM, LOCATION [facility] INDICATION: Trauma COMPARISON: None. TECHNIQUE: CT of the chest, abdomen, and pelvis was performed after the uneventful administration of 100 mL of Isovue 370 intravenous contrast according to standard protocol. Findings: Chest: Lower Neck and Axillae: Normal. Lungs: No pulmonary parenchymal or airway process is present. No suspicious pulmonary nodules are identified. No pleural fluid or pneumothorax is present. Heart and Pericardium: The cardiac chambers are normal in size. No pericardial fluid orthickening is present. Mediastinum and Vicky: No mediastinal hemorrhage is present. No enlarged lymph nodes arepresent. Thoracic Vasculature: No vascular abnormality is present. Abdomen/pelvis: Liver: Normal. Gallbladder and Bile Ducts: Normal. Spleen: Normal. Pancreas: Normal. Adrenals: Normal. Kidneys: Normal. Gastrointestinal: The stomach and visualized loops of large and small bowel areunremarkable. Normal appendix. Mesentery/Peritoneum/Retroperitoneum: No free intraperitoneal air. No free fluid in the abdomen or pelvis. Pelvis: The bladder is normal. The prostate is normal. There is no free pelvic fluid. Abdominal Vasculature: No vascular abnormality is present. Bones: Bone windows demonstrate no suspicious lytic or blastic lesions. Noacute fractures. Fusion of the C7 and T1 vertebral bodies. Chronic deformityof the posterior left 11th and 12th ribs. Degenerative changes throughoutthe spine. Chronic bilateral pars defects at L5 with grade 1 anterolisthesisof L5 on S1. Soft tissues: Normal. Impression: 1.No acute visceral, vascular, or osseus injury identified in the chest, abdomen, or pelvis. > Dictated by Luis A Peres DO (co founder and president). Wallace Ferguson MD have personally reviewed and interpreted this examination/study. > Interpreting Provider: Wallace Brasher MD on 11/17/2022 12:13 AM Tad Booker MD CT ORDERABLES * CT LUMBAR SPINE WO CONTRAST - T/L-spine trauma, Spine fracture (11/16/2022 9:17 PM CDT) Anatomical Region Laterality Modality Spine Computed Tomogra phy 11/16/2022 9:27 PM CDT Impressions 11/16/2022 11:54 PM CDT IMPRESSION: 1.No acute intracranial abnormality. 2.Multiple minimally displaced/nondisplaced acute maxillofacial fractures as described in the findings, which is associated with trace pneumocephalus along the right anterior middle cranial fossa and trace foci of gas within the right extraconal space. No evidence of globe trauma or retro-orbital bulbar hematoma. 3.No acute fracture or traumatic malalignment of the cervical, thoracic, or lumbar spine. This study was dictated by co founder and president Maico Regan MD and reviewed and edited by the attending. I, Marcelo Ingram MD, PhD have personally reviewed and interpreted this examination/study. > Interpreting Provider: Marcelo Ingram MD, PhD on 11/16/2022 11:54 PM Narrative 11/16/2022 11:54 PM CDT EXAM: CT HEAD WO CONTRAST, CT FACIAL BONES WO CONTRAST, CT LUMBAR SPINE WO CONTRAST, CT THORACIC SPINE WO CONTRAST, CT CERVICAL SPINE WO CONTRAST, DATE/TIME OF EXAM: 11/16/2022 9:19 PM, LOCATION: ??[facility] HISTORY: Trauma EXAMINATION: CT scan of the head and facial bones/paranasal sinuses in addition to CT scan of the cervical, thoracic, and lumbar spine without intravenous contrast TECHNIQUE: CT of the head, facial bones/paranasal sinuses, and cervical spine was performed without intravenous contrast according to standard protocol. CT dose reduction technique was used, including Automated Exposure Control. Reformatted axial, sagittal, and coronal images of the thoracic and lumbar spine were obtained by the technologist from a concurrently performed chest, abdomen, and pelvis CT and sent to the workstation for review. COMPARISON: No prior similar studies are available for comparison. FINDINGS: HEAD: BRAIN PARENCHYMA: No acute hemorrhage, large vascular territory infarct, or mass effect. No acute hemorrhage, large vascular territory infarct, or mass effect. White matter is within normal limits for age. VENTRICLES/EXTRA-AXIAL SPACES: No ventriculomegaly or extra-axial collection. Basal cisterns are patent. Trace focus of pneumocephalus along the right anterior middle cranial fossa associated with an acute nondisplaced fracture of the right greater wing of the sphenoid. EXTRACRANIAL STRUCTURES: Acute nondisplaced fracture of the right greater wing of the sphenoid. Additional minimally displaced/nondisplaced acute maxillofacial fractures as described below. Large laceration of the right anterior frontal scalp/right supraorbital region with a small underlying soft tissue hemorrhage. FACE/SINUSES: BONES: Multiple minimally displaced/nondisplaced acute maxillofacial fractures, including the following: --Acute nondisplaced fracture of the right greater wing of the sphenoid (3/169, 5/144), which extends to the right orbital apex. This is associated with trace pneumocephalus along the right anterior middle cranial fossa (3/176). --Acute minimally displaced fracture of the right orbital roof (5/127-129). This is associated with trace foci of left extraconal gas (3/192, 5/122). --Acute nondisplaced fracture of the right anterior and posterior maxillary sinus alejandra (5/166, 127). --Acute nondisplaced fracture of the left lateral orbital wall extending to the left proximal zygomatic arch (5/108, 115). --Acute minimally displaced fracture of the midportion of the left zygomatic arch (3/41). --Acute nondisplaced fracture of the left squamosal portion of the temporal bone (3/150). --Acute minimally displaced comminuted fracture of the anterosuperior portion of the left maxillary sinus wall/left orbital floor (3/160, 5/82). Additional acute minimally displace fracture of the left anterior maxillary sinus wall elsewhere (6/106, 113; 3/139). PARANASAL SINUSES: Moderate mucosal opacification/suspected blood products of the ethmoid air cells extending into the frontoethmoidal recesses. Small liquid levels/suspected blood products within the right maxillary and left sphenoid sinuses. Mild mucosal thickening of the maxillary sinuses. NASAL CAVITY: Mild mucosal thickening of nasal cavity. Mild rightward deviated deviated nasal septum with a small spur. ORBITS: Suspected right intraconal orbital varices 1.4 x 0.8 cm and 1.4 x 0.9 cm in the axial plane (4/178, 196) and small foci of right extraconal gas associated with right orbital wall acute fractures described above; otherwise, unremarkable orbits. Globes are intact. No evidence of retrobulbar hematoma. SOFT TISSUES: Large laceration of the right anterior frontal scalp/right supraorbital region with a small underlying soft tissue hemorrhage. Mild soft tissue swelling of the left frontal scalp/supraorbital region. Mild right pre-malar soft tissue swelling measuring up to 0.7 cm in thickness (4/166). OTHER: Bubbly opacities layering within the naso-oropharynx. CERVICAL SPINE: ALIGNMENT: Straightening of cervical spine lordotic curvature in addition to minimal retrolisthesis of C3 on C4. No traumatic malalignment. ATLANTOAXIAL JOINT: The dens is intact, the lateral masses of C1 are normally aligned relative to C2, and the atlantodental interval is unremarkable, other than mild degenerative changes. BONES: Vertebral body heights are maintained without evidence of acute fracture. 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 DISCS: Multilevel disc space narrowing, which is notably moderate at the C6-C7 level. DEGENERATIVE CHANGES: Overall moderate multilevel degenerative changes, characterized by varying degrees of posterior disc bulges/osteophyte complexes, facet arthropathy, and uncovertebral joint hypertrophy. ?? SPINAL CANAL/NEUROFORAMEN: Multilevel spinal canal stenoses that is severe at the C6-C7 level and moderate elsewhere secondary to posterior disc bulges/osteophyte complexes on a background of congenital spinal canal narrowing. Multilevel neuroforaminal narrowing that is notably high-grade at the left C3-C4 and bilateral C6-C7 levels secondary to uncovertebral joint hypertrophy. SOFT TISSUES: No prevertebral soft tissue swelling. Visualized neck soft tissues are normal. Incidentally noted scattered tonsilloliths. OTHER: Mild scarring of the lung apices. THORACIC SPINE: ALIGNMENT: Normal. BONES: Vertebral body heights are maintained without evidence of acute fracture. DISCS: Multilevel disc space narrowing with a few scattered small endplate Schmorl's nodes. DEGENERATIVE CHANGES: Overall mild multilevel degenerative changes. ?? SPINAL CANAL/NEUROFORAMEN: No significant osseous spinal canal stenosis. Multilevel high-grade bilateral neuroforaminal narrowing of the ludrc-jz-woz thoracic spine. ?? SOFT TISSUES: Visualized soft tissues are normal. OTHER: Partially imaged portions of lungs are predominantly clear. LUMBAR SPINE: ALIGNMENT: Grade 1 anterolisthesis of L5 on S1 (measuring 10 mm) secondary to chronic L5 bilateral pars defects. Lumbar vertebral alignment is otherwise unremarkable. No evidence of acute traumatic malalignment. BONES: Vertebral body heights are maintained without evidence of acute fracture. Chronic L5 bilateral pars defects. DISCS: Multilevel disc space narrowing, which is notably moderate at the L2-L3 and L5-S1 levels with vacuum disc phenomena. DEGENERATIVE CHANGES: Overall moderate multilevel degenerative change, characterized by varying degrees of posterior disc bulges, ligamentum flavum hypertrophy, and facet arthropathy. ?? SPINAL CANAL/NEUROFORAMEN: Moderate spinal canal stenosis at the L2-L3 and L3-L4 levels secondary to posterior bulges/ligamentum flavum hypertrophy, and facet arthropathy. ??Severe neuroforaminal narrowing at the right L2-L3 and bilateral L5-S1 levels and lwupysqg-wg-[id number] neuroforaminal narrowing elsewhere throughout the lumbar spine. SOFT TISSUES: Visualized soft tissues are normal. OTHER: Minimal degenerative changes of the sacroiliac joints. Procedure Note Marcelo Ingram MD - 11/16/2022 EXAM: CT HEAD WO CONTRAST, CT FACIAL BONES WO CONTRAST, CT LUMBAR SPINEWO CONTRAST, CT THORACIC SPINE WO CONTRAST, CT CERVICAL SPINE WO CONTRAST, DATE/TIME OF EXAM: 11/16/2022 9:19 PM, LOCATION: [facility] HISTORY: Trauma EXAMINATION: CT scan of the head and facial bones/paranasal sinuses in addition to CT scan of the cervical, thoracic, and lumbar spine without intravenous contrast TECHNIQUE: CT of the head, facial bones/paranasal sinuses, and cervical spine was performed without intravenous contrast according to standard protocol.CT dose reduction technique was used, including Automated Exposure Control. Reformatted axial, sagittal, and coronal images of the thoracic andlumbar spine were obtained by the technologist from a concurrently performed chest, abdomen, and pelvis CT and sent to the workstation for review. COMPARISON: No prior similar studies are available for comparison. FINDINGS: HEAD: BRAIN PARENCHYMA: No acute hemorrhage, large vascular territory infarct,or mass effect. No acute hemorrhage, large vascular territory infarct, ormass effect. White matter is within normal limits for age. VENTRICLES/EXTRA-AXIAL SPACES: No ventriculomegaly or extra-axial collection. Basal cisterns are patent. Trace focus of pneumocephalusalong the right anterior middle cranial fossa associated with an acute nondisplaced fracture of the right greater wing of the sphenoid. EXTRACRANIAL STRUCTURES: Acute nondisplaced fracture of the rightgreater wing of the sphenoid. Additional minimally displaced/nondisplaced acute maxillofacial fractures as described below. Large laceration of theright anterior frontal scalp/right supraorbital region with a small underlying soft tissue hemorrhage. FACE/SINUSES: BONES: Multiple minimally displaced/nondisplaced acute maxillofacial fractures, including the following: --Acute nondisplaced fracture of the right greater wing of the sphenoid (3/169, 5/144), which extends to the right orbital apex. This isassociated with trace pneumocephalus along the right anterior middle cranial fossa (3/176). --Acute minimally displaced fracture of the right orbital roof(5/127-129). This is associated with trace foci of left extraconal gas (3/192,5/122). --Acute nondisplaced fracture of the right anterior and posteriormaxillary sinus alejandra (5/166, 127). --Acute nondisplaced fracture of the left lateral orbital wall extendingto the left proximal zygomatic arch (5/108, 115). --Acute minimally displaced fracture of the midportion of the left zygomatic arch (3/41). --Acute nondisplaced fracture of the left squamosal portion of thetemporal bone (3/150). --Acute minimally displaced comminuted fracture of the anterosuperior portion of the left maxillary sinus wall/left orbital floor (3/160,5/82). Additional acute minimally displace fracture of the left anteriormaxillary sinus wall elsewhere (6/106, 113; 3/139). PARANASAL SINUSES: Moderate mucosal opacification/suspected bloodproducts of the ethmoid air cells extending into the frontoethmoidal recesses.Small liquid levels/suspected blood products within the right maxillary andleft sphenoid sinuses. Mild mucosal thickening of the maxillary sinuses. NASAL CAVITY: Mild mucosal thickening of nasal cavity. Mild rightward deviated deviated nasal septum with a small spur. 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 Globes are intact. No evidence of retrobulbar hematoma. SOFT TISSUES: Large laceration of the right anterior frontal scalp/right supraorbital region with a small underlying soft tissue hemorrhage. Mild soft tissue swelling of the left frontal scalp/supraorbital region. Mild right pre-malar soft tissue swelling measuring up to 0.7 cm in thickness (4/166). OTHER: Bubbly opacities layering within the naso-oropharynx. CERVICAL SPINE: ALIGNMENT: Straightening of cervical spine lordotic curvature inaddition to minimal retrolisthesis of C3 on C4. No traumatic malalignment. ATLANTOAXIAL JOINT: The dens is intact, the lateral masses of C1 are normally aligned relative to C2, and the atlantodental interval is unremarkable, other than mild degenerative changes. BONES: Vertebral body heights are maintained without evidence of acute fracture. 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 DISCS: Multilevel disc space narrowing, which is notably moderate at the C6-C7 level. DEGENERATIVE CHANGES: Overall moderate multilevel degenerative changes, characterized by varying degrees of posterior disc bulges/osteophyte complexes, facet arthropathy, and uncovertebral joint hypertrophy. SPINAL CANAL/NEUROFORAMEN: Multilevel spinal canal stenoses that issevere at the C6-C7 level and moderate elsewhere secondary to posterior disc bulges/osteophyte complexes on a background of congenital spinal canal narrowing. Multilevel neuroforaminal narrowing that is notablyhigh-grade at the left C3-C4 and bilateral C6-C7 levels secondary to uncovertebral joint hypertrophy. SOFT TISSUES: No prevertebral soft tissue swelling. Visualized neck soft tissues are normal. Incidentally noted scattered tonsilloliths. OTHER: Mild scarring of the lung apices. THORACIC SPINE: ALIGNMENT: Normal. BONES: Vertebral body heights are maintained without evidence of acute fracture. DISCS: Multilevel disc space narrowing with a few scattered smallendplate Schmorl's nodes. DEGENERATIVE CHANGES: Overall mild multilevel degenerative changes. SPINAL CANAL/NEUROFORAMEN: No significant osseous spinal canal stenosis. Multilevel high-grade bilateral neuroforaminal narrowing of the [id number]-dv-[id number] thoracic spine. SOFT TISSUES: Visualized soft tissues are normal. OTHER: Partially imaged portions of lungs are predominantly clear. LUMBAR SPINE: ALIGNMENT: Grade 1 anterolisthesis of L5 on S1 (measuring 10 mm)secondary to chronic L5 bilateral pars defects. Lumbar vertebral alignment is otherwise unremarkable. No evidence of acute traumatic malalignment. BONES: Vertebral body heights are maintained without evidence of acute fracture. Chronic L5 bilateral pars defects. DISCS: Multilevel disc space narrowing, which is notably moderate at the L2-L3 and L5-S1 levels with vacuum disc phenomena. DEGENERATIVE CHANGES: Overall moderate multilevel degenerative change, characterized by varying degrees of posterior disc bulges, ligamentum flavum hypertrophy, and facet arthropathy. SPINAL CANAL/NEUROFORAMEN: Moderate spinal canal stenosis at the L2-L3and L3-L4 levels secondary to posterior bulges/ligamentum flavumhypertrophy, and facet arthropathy. Severe neuroforaminal narrowing at the rightL2-L3 and bilateral L5-S1 levels and fizjwqfr-mr-horcre neuroforaminalnarrowing elsewhere throughout the lumbar spine. SOFT TISSUES: Visualized soft tissues are normal. OTHER: Minimal degenerative changes of the sacroiliac joints. IMPRESSION: 1.No acute intracranial abnormality. 2.Multiple minimally displaced/nondisplaced acute maxillofacialfractures as described in the findings, which is associated with tracepneumocephalus along the right anterior middle cranial fossa and trace foci of gaswithin the right extraconal space. No evidence of globe trauma or retro-orbital bulbar hematoma. 3.No acute fracture or traumatic malalignment of the cervical, thoracic,or lumbar spine. This study was dictated by co founder and president Maico Regan MD and reviewed and edited by the attending. I, Marcelo Ingram MD, PhD have personally reviewed and interpreted this examination/study. > Interpreting Provider: Marcelo Ingram MD, PhD on 11/16/2022 11:54 PM Tad Booker MD CT ORDERABLES * CT THORACIC SPINE WO CONTRAST - T/L-spine trauma, spine fracture (11/16/2022 9:17 PM CDT) Anatomical Region Laterality Modality Spine Computed Tomogra phy 11/16/2022 9:27 PM CDT Impressions 11/16/2022 11:54 PM CDT IMPRESSION: 1.No acute intracranial abnormality. 2.Multiple minimally displaced/nondisplaced acute maxillofacial fractures as described in the findings, which is associated with trace pneumocephalus along the right anterior middle cranial fossa and trace foci of gas within the right extraconal space. No evidence of globe trauma or retro-orbital bulbar hematoma. 3.No acute fracture or traumatic malalignment of the cervical, thoracic, or lumbar spine. This study was dictated by co founder and president Maico Regan MD and reviewed and edited by the attending. I, Marcelo Ingram MD, PhD have personally reviewed and interpreted this examination/study. > Interpreting Provider: Marcelo Ingram MD, PhD on 11/16/2022 11:54 PM Narrative 11/16/2022 11:54 PM CDT EXAM: CT HEAD WO CONTRAST, CT FACIAL BONES WO CONTRAST, CT LUMBAR SPINE WO CONTRAST, CT THORACIC SPINE WO CONTRAST, CT CERVICAL SPINE WO CONTRAST, DATE/TIME OF EXAM: 11/16/2022 9:19 PM, LOCATION: ??[facility] HISTORY: Trauma EXAMINATION: CT scan of the head and facial bones/paranasal sinuses in addition to CT scan of the cervical, thoracic, and lumbar spine without intravenous contrast TECHNIQUE: CT of the head, facial bones/paranasal sinuses, and cervical spine was performed without intravenous contrast according to standard protocol. CT dose reduction technique was used, including Automated Exposure Control. Reformatted axial, sagittal, and coronal images of the thoracic and lumbar spine were obtained by the technologist from a concurrently performed chest, abdomen, and pelvis CT and sent to the workstation for review. COMPARISON: No prior similar studies are available for comparison. FINDINGS: HEAD: BRAIN PARENCHYMA: No acute hemorrhage, large vascular territory infarct, or mass effect. No acute hemorrhage, large vascular territory infarct, or mass effect. White matter is within normal limits for age. VENTRICLES/EXTRA-AXIAL SPACES: No ventriculomegaly or extra-axial collection. Basal cisterns are patent. Trace focus of pneumocephalus along the right anterior middle cranial fossa associated with an acute nondisplaced fracture of the right greater wing of the sphenoid. EXTRACRANIAL STRUCTURES: Acute nondisplaced fracture of the right greater wing of the sphenoid. Additional minimally displaced/nondisplaced acute maxillofacial fractures as described below. Large laceration of the right anterior frontal scalp/right supraorbital region with a small underlying soft tissue hemorrhage. FACE/SINUSES: BONES: Multiple minimally displaced/nondisplaced acute maxillofacial fractures, including the following: --Acute nondisplaced fracture of the right greater wing of the sphenoid (3/169, 5/144), which extends to the right orbital apex. This is associated with trace pneumocephalus along the right anterior middle cranial fossa (3/176). --Acute minimally displaced fracture of the right orbital roof (5/127-129). This is associated with trace foci of left extraconal gas (3/192, 5/122). --Acute nondisplaced fracture of the right anterior and posterior maxillary sinus alejandra (5/166, 127). --Acute nondisplaced fracture of the left lateral orbital wall extending to the left proximal zygomatic arch (5/108, 115). --Acute minimally displaced fracture of the midportion of the left zygomatic arch (3/41). --Acute nondisplaced fracture of the left squamosal portion of the temporal bone (3/150). --Acute minimally displaced comminuted fracture of the anterosuperior portion of the left maxillary sinus wall/left orbital floor (3/160, 5/82). Additional acute minimally displace fracture of the left anterior maxillary sinus wall elsewhere (6/106, 113; 3/139). PARANASAL SINUSES: Moderate mucosal opacification/suspected blood products of the ethmoid air cells extending into the frontoethmoidal recesses. Small liquid levels/suspected blood products within the right maxillary and left sphenoid sinuses. Mild mucosal thickening of the maxillary sinuses. NASAL CAVITY: Mild mucosal thickening of nasal cavity. Mild rightward deviated deviated nasal septum with a small spur. ORBITS: Suspected right intraconal orbital varices 1.4 x 0.8 cm and 1.4 x 0.9 cm in the axial plane (4/178, 196) and small foci of right extraconal gas associated with right orbital wall acute fractures described above; otherwise, unremarkable orbits. Globes are intact. No evidence of retrobulbar hematoma. SOFT TISSUES: Large laceration of the right anterior frontal scalp/right supraorbital region with a small underlying soft tissue hemorrhage. Mild soft tissue swelling of the left frontal scalp/supraorbital region. Mild right pre-malar soft tissue swelling measuring up to 0.7 cm in thickness (4/166). OTHER: Bubbly opacities layering within the naso-oropharynx. CERVICAL SPINE: ALIGNMENT: Straightening of cervical spine lordotic curvature in addition to minimal retrolisthesis of C3 on C4. No traumatic malalignment. ATLANTOAXIAL JOINT: The dens is intact, the lateral masses of C1 are normally aligned relative to C2, and the atlantodental interval is unremarkable, other than mild degenerative changes. BONES: Vertebral body heights are maintained without evidence of acute fracture. 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 DISCS: Multilevel disc space narrowing, which is notably moderate at the C6-C7 level. DEGENERATIVE CHANGES: Overall moderate multilevel degenerative changes, characterized by varying degrees of posterior disc bulges/osteophyte complexes, facet arthropathy, and uncovertebral joint hypertrophy. ?? SPINAL CANAL/NEUROFORAMEN: Multilevel spinal canal stenoses that is severe at the C6-C7 level and moderate elsewhere secondary to posterior disc bulges/osteophyte complexes on a background of congenital spinal canal narrowing. Multilevel neuroforaminal narrowing that is notably high-grade at the left C3-C4 and bilateral C6-C7 levels secondary to uncovertebral joint hypertrophy. SOFT TISSUES: No prevertebral soft tissue swelling. Visualized neck soft tissues are normal. Incidentally noted scattered tonsilloliths. OTHER: Mild scarring of the lung apices. THORACIC SPINE: ALIGNMENT: Normal. BONES: Vertebral body heights are maintained without evidence of acute fracture. DISCS: Multilevel disc space narrowing with a few scattered small endplate Schmorl's nodes. DEGENERATIVE CHANGES: Overall mild multilevel degenerative changes. ?? SPINAL CANAL/NEUROFORAMEN: No significant osseous spinal canal stenosis. Multilevel high-grade bilateral neuroforaminal narrowing of the hkogf-ty-ule thoracic spine. ?? SOFT TISSUES: Visualized soft tissues are normal. OTHER: Partially imaged portions of lungs are predominantly clear. LUMBAR SPINE: ALIGNMENT: Grade 1 anterolisthesis of L5 on S1 (measuring 10 mm) secondary to chronic L5 bilateral pars defects. Lumbar vertebral alignment is otherwise unremarkable. No evidence of acute traumatic malalignment. BONES: Vertebral body heights are maintained without evidence of acute fracture. Chronic L5 bilateral pars defects. DISCS: Multilevel disc space narrowing, which is notably moderate at the L2-L3 and L5-S1 levels with vacuum disc phenomena. DEGENERATIVE CHANGES: Overall moderate multilevel degenerative change, characterized by varying degrees of posterior disc bulges, ligamentum flavum hypertrophy, and facet arthropathy. ?? SPINAL CANAL/NEUROFORAMEN: Moderate spinal canal stenosis at the L2-L3 and L3-L4 levels secondary to posterior bulges/ligamentum flavum hypertrophy, and facet arthropathy. ??Severe neuroforaminal narrowing at the right L2-L3 and bilateral L5-S1 levels and gxeqtobn-lm-owkifb neuroforaminal narrowing elsewhere throughout the lumbar spine. SOFT TISSUES: Visualized soft tissues are normal. OTHER: Minimal degenerative changes of the sacroiliac joints. Procedure Note Marcelo Ingram MD - 11/16/2022 EXAM: CT HEAD WO CONTRAST, CT FACIAL BONES WO CONTRAST, CT LUMBAR SPINEWO CONTRAST, CT THORACIC SPINE WO CONTRAST, CT CERVICAL SPINE WO CONTRAST, DATE/TIME OF EXAM: 11/16/2022 9:19 PM, LOCATION: [facility] HISTORY: Trauma EXAMINATION: CT scan of the head and facial bones/paranasal sinuses in addition to CT scan of the cervical, thoracic, and lumbar spine without intravenous contrast TECHNIQUE: CT of the head, facial bones/paranasal sinuses, and cervical spine was performed without intravenous contrast according to standard protocol.CT dose reduction technique was used, including Automated Exposure Control. Reformatted axial, sagittal, and coronal images of the thoracic andlumbar spine were obtained by the technologist from a concurrently performed chest, abdomen, and pelvis CT and sent to the workstation for review. COMPARISON: No prior similar studies are available for comparison. FINDINGS: HEAD: BRAIN PARENCHYMA: No acute hemorrhage, large vascular territory infarct,or mass effect. No acute hemorrhage, large vascular territory infarct, ormass effect. White matter is within normal limits for age. VENTRICLES/EXTRA-AXIAL SPACES: No ventriculomegaly or extra-axial collection. Basal cisterns are patent. Trace focus of pneumocephalusalong the right anterior middle cranial fossa associated with an acute nondisplaced fracture of the right greater wing of the sphenoid. EXTRACRANIAL STRUCTURES: Acute nondisplaced fracture of the rightgreater wing of the sphenoid. Additional minimally displaced/nondisplaced acute maxillofacial fractures as described below. Large laceration of theright anterior frontal scalp/right supraorbital region with a small underlying soft tissue hemorrhage. FACE/SINUSES: BONES: Multiple minimally displaced/nondisplaced acute maxillofacial fractures, including the following: --Acute nondisplaced fracture of the right greater wing of the sphenoid (3/169, 5/144), which extends to the right orbital apex. This isassociated with trace pneumocephalus along the right anterior middle cranial fossa (3/176). --Acute minimally displaced fracture of the right orbital roof(5/127-129). This is associated with trace foci of left extraconal gas (3/192,5/122). --Acute nondisplaced fracture of the right anterior and posteriormaxillary sinus alejandra (5/166, 127). --Acute nondisplaced fracture of the left lateral orbital wall extendingto the left proximal zygomatic arch (5/108, 115). --Acute minimally displaced fracture of the midportion of the left zygomatic arch (3/41). --Acute nondisplaced fracture of the left squamosal portion of thetemporal bone (3/150). --Acute minimally displaced comminuted fracture of the anterosuperior portion of the left maxillary sinus wall/left orbital floor (3/160,5/82). Additional acute minimally displace fracture of the left anteriormaxillary sinus wall elsewhere (6/106, 113; 3/139). PARANASAL SINUSES: Moderate mucosal opacification/suspected bloodproducts of the ethmoid air cells extending into the frontoethmoidal recesses.Small liquid levels/suspected blood products within the right maxillary andleft sphenoid sinuses. Mild mucosal thickening of the maxillary sinuses. NASAL CAVITY: Mild mucosal thickening of nasal cavity. Mild rightward deviated deviated nasal septum with a small spur. 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 Globes are intact. No evidence of retrobulbar hematoma. SOFT TISSUES: Large laceration of the right anterior frontal scalp/right supraorbital region with a small underlying soft tissue hemorrhage. Mild soft tissue swelling of the left frontal scalp/supraorbital region. Mild right pre-malar soft tissue swelling measuring up to 0.7 cm in thickness (4/166). OTHER: Bubbly opacities layering within the naso-oropharynx. CERVICAL SPINE: ALIGNMENT: Straightening of cervical spine lordotic curvature inaddition to minimal retrolisthesis of C3 on C4. No traumatic malalignment. ATLANTOAXIAL JOINT: The dens is intact, the lateral masses of C1 are normally aligned relative to C2, and the atlantodental interval is unremarkable, other than mild degenerative changes. BONES: Vertebral body heights are maintained without evidence of acute fracture. 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 DISCS: Multilevel disc space narrowing, which is notably moderate at the C6-C7 level. DEGENERATIVE CHANGES: Overall moderate multilevel degenerative changes, characterized by varying degrees of posterior disc bulges/osteophyte complexes, facet arthropathy, and uncovertebral joint hypertrophy. SPINAL CANAL/NEUROFORAMEN: Multilevel spinal canal stenoses that issevere at the C6-C7 level and moderate elsewhere secondary to posterior disc bulges/osteophyte complexes on a background of congenital spinal canal narrowing. Multilevel neuroforaminal narrowing that is notablyhigh-grade at the left C3-C4 and bilateral C6-C7 levels secondary to uncovertebral joint hypertrophy. SOFT TISSUES: No prevertebral soft tissue swelling. Visualized neck soft tissues are normal. Incidentally noted scattered tonsilloliths. OTHER: Mild scarring of the lung apices. THORACIC SPINE: ALIGNMENT: Normal. BONES: Vertebral body heights are maintained without evidence of acute fracture. DISCS: Multilevel disc space narrowing with a few scattered smallendplate Schmorl's nodes. DEGENERATIVE CHANGES: Overall mild multilevel degenerative changes. SPINAL CANAL/NEUROFORAMEN: No significant osseous spinal canal stenosis. Multilevel high-grade bilateral neuroforaminal narrowing of the fmgau-ef-kzm thoracic spine. SOFT TISSUES: Visualized soft tissues are normal. OTHER: Partially imaged portions of lungs are predominantly clear. LUMBAR SPINE: ALIGNMENT: Grade 1 anterolisthesis of L5 on S1 (measuring 10 mm)secondary to chronic L5 bilateral pars defects. Lumbar vertebral alignment is otherwise unremarkable. No evidence of acute traumatic malalignment. BONES: Vertebral body heights are maintained without evidence of acute fracture. Chronic L5 bilateral pars defects. DISCS: Multilevel disc space narrowing, which is notably moderate at the L2-L3 and L5-S1 levels with vacuum disc phenomena. DEGENERATIVE CHANGES: Overall moderate multilevel degenerative change, characterized by varying degrees of posterior disc bulges, ligamentum flavum hypertrophy, and facet arthropathy. SPINAL CANAL/NEUROFORAMEN: Moderate spinal canal stenosis at the L2-L3and L3-L4 levels secondary to posterior bulges/ligamentum flavumhypertrophy, and facet arthropathy. Severe neuroforaminal narrowing at the rightL2-L3 and bilateral L5-S1 levels and ymlutgnu-no-rurxmw neuroforaminalnarrowing elsewhere throughout the lumbar spine. SOFT TISSUES: Visualized soft tissues are normal. OTHER: Minimal degenerative changes of the sacroiliac joints. IMPRESSION: 1.No acute intracranial abnormality. 2.Multiple minimally displaced/nondisplaced acute maxillofacialfractures as described in the findings, which is associated with tracepneumocephalus along the right anterior middle cranial fossa and trace foci of gaswithin the right extraconal space. No evidence of globe trauma or retro-orbital bulbar hematoma. 3.No acute fracture or traumatic malalignment of the cervical, thoracic,or lumbar spine. This study was dictated by co founder and president Maico Regan MD and reviewed and edited by the attending. I, Marcelo Ingram MD, PhD have personally reviewed and interpreted this examination/study. > Interpreting Provider: Marcelo Ingram MD, PhD on 11/16/2022 11:54 PM Tad Booker MD CT ORDERABLES * CT CERVICAL SPINE WO CONTRAST - C-Spine Trauma, Spine fracture (11/16/2022 9:17 PM CDT) Anatomical Region Laterality Modality Spine Computed Tomogra phy 11/16/2022 9:27 PM CDT Impressions 11/16/2022 11:54 PM CDT IMPRESSION: 1.No acute intracranial abnormality. 2.Multiple minimally displaced/nondisplaced acute maxillofacial fractures as described in the findings, which is associated with trace pneumocephalus along the right anterior middle cranial fossa and trace foci of gas within the right extraconal space. No evidence of globe trauma or retro-orbital bulbar hematoma. 3.No acute fracture or traumatic malalignment of the cervical, thoracic, or lumbar spine. This study was dictated by co founder and president Maico Regan MD and reviewed and edited by the attending. I, Marcelo Ingram MD, PhD have personally reviewed and interpreted this examination/study. > Interpreting Provider: Marcelo Ingram MD, PhD on 11/16/2022 11:54 PM Narrative 11/16/2022 11:54 PM CDT EXAM: CT HEAD WO CONTRAST, CT FACIAL BONES WO CONTRAST, CT LUMBAR SPINE WO CONTRAST, CT THORACIC SPINE WO CONTRAST, CT CERVICAL SPINE WO CONTRAST, DATE/TIME OF EXAM: 11/16/2022 9:19 PM, LOCATION: ??[facility] HISTORY: Trauma EXAMINATION: CT scan of the head and facial bones/paranasal sinuses in addition to CT scan of the cervical, thoracic, and lumbar spine without intravenous contrast TECHNIQUE: CT of the head, facial bones/paranasal sinuses, and cervical spine was performed without intravenous contrast according to standard protocol. CT dose reduction technique was used, including Automated Exposure Control. Reformatted axial, sagittal, and coronal images of the thoracic and lumbar spine were obtained by the technologist from a concurrently performed chest, abdomen, and pelvis CT and sent to the workstation for review. COMPARISON: No prior similar studies are available for comparison. FINDINGS: HEAD: BRAIN PARENCHYMA: No acute hemorrhage, large vascular territory infarct, or mass effect. No acute hemorrhage, large vascular territory infarct, or mass effect. White matter is within normal limits for age. VENTRICLES/EXTRA-AXIAL SPACES: No ventriculomegaly or extra-axial collection. Basal cisterns are patent. Trace focus of pneumocephalus along the right anterior middle cranial fossa associated with an acute nondisplaced fracture of the right greater wing of the sphenoid. EXTRACRANIAL STRUCTURES: Acute nondisplaced fracture of the right greater wing of the sphenoid. Additional minimally displaced/nondisplaced acute maxillofacial fractures as described below. Large laceration of the right anterior frontal scalp/right supraorbital region with a small underlying soft tissue hemorrhage. FACE/SINUSES: BONES: Multiple minimally displaced/nondisplaced acute maxillofacial fractures, including the following: --Acute nondisplaced fracture of the right greater wing of the sphenoid (3/169, 5/144), which extends to the right orbital apex. This is associated with trace pneumocephalus along the right anterior middle cranial fossa (3/176). --Acute minimally displaced fracture of the right orbital roof (5/127-129). This is associated with trace foci of left extraconal gas (3/192, 5/122). --Acute nondisplaced fracture of the right anterior and posterior maxillary sinus alejandra (5/166, 127). --Acute nondisplaced fracture of the left lateral orbital wall extending to the left proximal zygomatic arch (5/108, 115). --Acute minimally displaced fracture of the midportion of the left zygomatic arch (3/41). --Acute nondisplaced fracture of the left squamosal portion of the temporal bone (3/150). --Acute minimally displaced comminuted fracture of the anterosuperior portion of the left maxillary sinus wall/left orbital floor (3/160, 5/82). Additional acute minimally displace fracture of the left anterior maxillary sinus wall elsewhere (6/106, 113; 3/139). PARANASAL SINUSES: Moderate mucosal opacification/suspected blood products of the ethmoid air cells extending into the frontoethmoidal recesses. Small liquid levels/suspected blood products within the right maxillary and left sphenoid sinuses. Mild mucosal thickening of the maxillary sinuses. NASAL CAVITY: Mild mucosal thickening of nasal cavity. Mild rightward deviated deviated nasal septum with a small spur. ORBITS: Suspected right intraconal orbital varices 1.4 x 0.8 cm and 1.4 x 0.9 cm in the axial plane (4/178, 196) and small foci of right extraconal gas associated with right orbital wall acute fractures described above; otherwise, unremarkable orbits. Globes are intact. No evidence of retrobulbar hematoma. SOFT TISSUES: Large laceration of the right anterior frontal scalp/right supraorbital region with a small underlying soft tissue hemorrhage. Mild soft tissue swelling of the left frontal scalp/supraorbital region. Mild right pre-malar soft tissue swelling measuring up to 0.7 cm in thickness (4/166). OTHER: Bubbly opacities layering within the naso-oropharynx. CERVICAL SPINE: ALIGNMENT: Straightening of cervical spine lordotic curvature in addition to minimal retrolisthesis of C3 on C4. No traumatic malalignment. ATLANTOAXIAL JOINT: The dens is intact, the lateral masses of C1 are normally aligned relative to C2, and the atlantodental interval is unremarkable, other than mild degenerative changes. BONES: Vertebral body heights are maintained without evidence of acute fracture. 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 DISCS: Multilevel disc space narrowing, which is notably moderate at the C6-C7 level. DEGENERATIVE CHANGES: Overall moderate multilevel degenerative changes, characterized by varying degrees of posterior disc bulges/osteophyte complexes, facet arthropathy, and uncovertebral joint hypertrophy. ?? SPINAL CANAL/NEUROFORAMEN: Multilevel spinal canal stenoses that is severe at the C6-C7 level and moderate elsewhere secondary to posterior disc bulges/osteophyte complexes on a background of congenital spinal canal narrowing. Multilevel neuroforaminal narrowing that is notably high-grade at the left C3-C4 and bilateral C6-C7 levels secondary to uncovertebral joint hypertrophy. SOFT TISSUES: No prevertebral soft tissue swelling. Visualized neck soft tissues are normal. Incidentally noted scattered tonsilloliths. OTHER: Mild scarring of the lung apices. THORACIC SPINE: ALIGNMENT: Normal. BONES: Vertebral body heights are maintained without evidence of acute fracture. DISCS: Multilevel disc space narrowing with a few scattered small endplate Schmorl's nodes. DEGENERATIVE CHANGES: Overall mild multilevel degenerative changes. ?? SPINAL CANAL/NEUROFORAMEN: No significant osseous spinal canal stenosis. Multilevel high-grade bilateral neuroforaminal narrowing of the [id number]-dv-[id number] thoracic spine. ?? SOFT TISSUES: Visualized soft tissues are normal. OTHER: Partially imaged portions of lungs are predominantly clear. LUMBAR SPINE: ALIGNMENT: Grade 1 anterolisthesis of L5 on S1 (measuring 10 mm) secondary to chronic L5 bilateral pars defects. Lumbar vertebral alignment is otherwise unremarkable. No evidence of acute traumatic malalignment. BONES: Vertebral body heights are maintained without evidence of acute fracture. Chronic L5 bilateral pars defects. DISCS: Multilevel disc space narrowing, which is notably moderate at the L2-L3 and L5-S1 levels with vacuum disc phenomena. DEGENERATIVE CHANGES: Overall moderate multilevel degenerative change, characterized by varying degrees of posterior disc bulges, ligamentum flavum hypertrophy, and facet arthropathy. ?? SPINAL CANAL/NEUROFORAMEN: Moderate spinal canal stenosis at the L2-L3 and L3-L4 levels secondary to posterior bulges/ligamentum flavum hypertrophy, and facet arthropathy. ??Severe neuroforaminal narrowing at the right L2-L3 and bilateral L5-S1 levels and [id number] neuroforaminal narrowing elsewhere throughout the lumbar spine. SOFT TISSUES: Visualized soft tissues are normal. OTHER: Minimal degenerative changes of the sacroiliac joints. Procedure Note Marcelo Ingram MD - 11/16/2022 EXAM: CT HEAD WO CONTRAST, CT FACIAL BONES WO CONTRAST, CT LUMBAR SPINEWO CONTRAST, CT THORACIC SPINE WO CONTRAST, CT CERVICAL SPINE WO CONTRAST, DATE/TIME OF EXAM: 11/16/2022 9:19 PM, LOCATION: [facility] HISTORY: Trauma EXAMINATION: CT scan of the head and facial bones/paranasal sinuses in addition to CT scan of the cervical, thoracic, and lumbar spine without intravenous contrast TECHNIQUE: CT of the head, facial bones/paranasal sinuses, and cervical spine was performed without intravenous contrast according to standard protocol.CT dose reduction technique was used, including Automated Exposure Control. Reformatted axial, sagittal, and coronal images of the thoracic andlumbar spine were obtained by the technologist from a concurrently performed chest, abdomen, and pelvis CT and sent to the workstation for review. COMPARISON: No prior similar studies are available for comparison. FINDINGS: HEAD: BRAIN PARENCHYMA: No acute hemorrhage, large vascular territory infarct,or mass effect. No acute hemorrhage, large vascular territory infarct, ormass effect. White matter is within normal limits for age. VENTRICLES/EXTRA-AXIAL SPACES: No ventriculomegaly or extra-axial collection. Basal cisterns are patent. Trace focus of pneumocephalusalong the right anterior middle cranial fossa associated with an acute nondisplaced fracture of the right greater wing of the sphenoid. EXTRACRANIAL STRUCTURES: Acute nondisplaced fracture of the rightgreater wing of the sphenoid. Additional minimally displaced/nondisplaced acute maxillofacial fractures as described below. Large laceration of theright anterior frontal scalp/right supraorbital region with a small underlying soft tissue hemorrhage. FACE/SINUSES: BONES: Multiple minimally displaced/nondisplaced acute maxillofacial fractures, including the following: --Acute nondisplaced fracture of the right greater wing of the sphenoid (3/169, 5/144), which extends to the right orbital apex. This isassociated with trace pneumocephalus along the right anterior middle cranial fossa (3/176). --Acute minimally displaced fracture of the right orbital roof(5/127-129). This is associated with trace foci of left extraconal gas (3/192,5/122). --Acute nondisplaced fracture of the right anterior and posteriormaxillary sinus alejandra (5/166, 127). --Acute nondisplaced fracture of the left lateral orbital wall extendingto the left proximal zygomatic arch (5/108, 115). --Acute minimally displaced fracture of the midportion of the left zygomatic arch (3/41). --Acute nondisplaced fracture of the left squamosal portion of thetemporal bone (3/150). --Acute minimally displaced comminuted fracture of the anterosuperior portion of the left maxillary sinus wall/left orbital floor (3/160,5/82). Additional acute minimally displace fracture of the left anteriormaxillary sinus wall elsewhere (6/106, 113; 3/139). PARANASAL SINUSES: Moderate mucosal opacification/suspected bloodproducts of the ethmoid air cells extending into the frontoethmoidal recesses.Small liquid levels/suspected blood products within the right maxillary andleft sphenoid sinuses. Mild mucosal thickening of the maxillary sinuses. NASAL CAVITY: Mild mucosal thickening of nasal cavity. Mild rightward deviated deviated nasal septum with a small spur. 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 Globes are intact. No evidence of retrobulbar hematoma. SOFT TISSUES: Large laceration of the right anterior frontal scalp/right supraorbital region with a small underlying soft tissue hemorrhage. Mild soft tissue swelling of the left frontal scalp/supraorbital region. Mild right pre-malar soft tissue swelling measuring up to 0.7 cm in thickness (4/166). OTHER: Bubbly opacities layering within the naso-oropharynx. CERVICAL SPINE: ALIGNMENT: Straightening of cervical spine lordotic curvature inaddition to minimal retrolisthesis of C3 on C4. No traumatic malalignment. ATLANTOAXIAL JOINT: The dens is intact, the lateral masses of C1 are normally aligned relative to C2, and the atlantodental interval is unremarkable, other than mild degenerative changes. BONES: Vertebral body heights are maintained without evidence of acute fracture. 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 DISCS: Multilevel disc space narrowing, which is notably moderate at the C6-C7 level. DEGENERATIVE CHANGES: Overall moderate multilevel degenerative changes, characterized by varying degrees of posterior disc bulges/osteophyte complexes, facet arthropathy, and uncovertebral joint hypertrophy. SPINAL CANAL/NEUROFORAMEN: Multilevel spinal canal stenoses that issevere at the C6-C7 level and moderate elsewhere secondary to posterior disc bulges/osteophyte complexes on a background of congenital spinal canal narrowing. Multilevel neuroforaminal narrowing that is notablyhigh-grade at the left C3-C4 and bilateral C6-C7 levels secondary to uncovertebral joint hypertrophy. SOFT TISSUES: No prevertebral soft tissue swelling. Visualized neck soft tissues are normal. Incidentally noted scattered tonsilloliths. OTHER: Mild scarring of the lung apices. THORACIC SPINE: ALIGNMENT: Normal. BONES: Vertebral body heights are maintained without evidence of acute fracture. DISCS: Multilevel disc space narrowing with a few scattered smallendplate Schmorl's nodes. DEGENERATIVE CHANGES: Overall mild multilevel degenerative changes. SPINAL CANAL/NEUROFORAMEN: No significant osseous spinal canal stenosis. Multilevel high-grade bilateral neuroforaminal narrowing of the swkrn-cz-sar thoracic spine. SOFT TISSUES: Visualized soft tissues are normal. OTHER: Partially imaged portions of lungs are predominantly clear. LUMBAR SPINE: ALIGNMENT: Grade 1 anterolisthesis of L5 on S1 (measuring 10 mm)secondary to chronic L5 bilateral pars defects. Lumbar vertebral alignment is otherwise unremarkable. No evidence of acute traumatic malalignment. BONES: Vertebral body heights are maintained without evidence of acute fracture. Chronic L5 bilateral pars defects. DISCS: Multilevel disc space narrowing, which is notably moderate at the L2-L3 and L5-S1 levels with vacuum disc phenomena. DEGENERATIVE CHANGES: Overall moderate multilevel degenerative change, characterized by varying degrees of posterior disc bulges, ligamentum flavum hypertrophy, and facet arthropathy. SPINAL CANAL/NEUROFORAMEN: Moderate spinal canal stenosis at the L2-L3and L3-L4 levels secondary to posterior bulges/ligamentum flavumhypertrophy, and facet arthropathy. Severe neuroforaminal narrowing at the rightL2-L3 and bilateral L5-S1 levels and [id number]-tc-[id number] neuroforaminalnarrowing elsewhere throughout the lumbar spine. SOFT TISSUES: Visualized soft tissues are normal. OTHER: Minimal degenerative changes of the sacroiliac joints. IMPRESSION: 1.No acute intracranial abnormality. 2.Multiple minimally displaced/nondisplaced acute maxillofacialfractures as described in the findings, which is associated with tracepneumocephalus along the right anterior middle cranial fossa and trace foci of gaswithin the right extraconal space. No evidence of globe trauma or retro-orbital bulbar hematoma. 3.No acute fracture or traumatic malalignment of the cervical, thoracic,or lumbar spine. This study was dictated by co founder and president Maico Regan MD and reviewed and edited by the attending. Marcelo Ferguson MD, PhD have personally reviewed and interpreted this examination/study. > Interpreting Provider: Marcelo Ingram MD, PhD on 11/16/2022 11:54 PM Tad Booker MD CT ORDERABLES * CT FACIAL BONES WO CONTRAST - Facial trauma, fx suspected, blunt (11/16/2022 9:17 PM CDT) Anatomical Region Laterality Modality Head Computed Tomogra phy 11/16/2022 9:27 PM CDT Impressions 11/16/2022 11:54 PM CDT IMPRESSION: 1.No acute intracranial abnormality. 2.Multiple minimally displaced/nondisplaced acute maxillofacial fractures as described in the findings, which is associated with trace pneumocephalus along the right anterior middle cranial fossa and trace foci of gas within the right extraconal space. No evidence of globe trauma or retro-orbital bulbar hematoma. 3.No acute fracture or traumatic malalignment of the cervical, thoracic, or lumbar spine. This study was dictated by co founder and president Maico Regan MD and reviewed and edited by the attending. Marcelo Ferguson MD, PhD have personally reviewed and interpreted this examination/study. > Interpreting Provider: Marcelo Ingram MD, PhD on 11/16/2022 11:54 PM Narrative 11/16/2022 11:54 PM CDT EXAM: CT HEAD WO CONTRAST, CT FACIAL BONES WO CONTRAST, CT LUMBAR SPINE WO CONTRAST, CT THORACIC SPINE WO CONTRAST, CT CERVICAL SPINE WO CONTRAST, DATE/TIME OF EXAM: 11/16/2022 9:19 PM, LOCATION: ??[facility] HISTORY: Trauma EXAMINATION: CT scan of the head and facial bones/paranasal sinuses in addition to CT scan of the cervical, thoracic, and lumbar spine without intravenous contrast TECHNIQUE: CT of the head, facial bones/paranasal sinuses, and cervical spine was performed without intravenous contrast according to standard protocol. CT dose reduction technique was used, including Automated Exposure Control. Reformatted axial, sagittal, and coronal images of the thoracic and lumbar spine were obtained by the technologist from a concurrently performed chest, abdomen, and pelvis CT and sent to the workstation for review. COMPARISON: No prior similar studies are available for comparison. FINDINGS: HEAD: BRAIN PARENCHYMA: No acute hemorrhage, large vascular territory infarct, or mass effect. No acute hemorrhage, large vascular territory infarct, or mass effect. White matter is within normal limits for age. VENTRICLES/EXTRA-AXIAL SPACES: No ventriculomegaly or extra-axial collection. Basal cisterns are patent. Trace focus of pneumocephalus along the right anterior middle cranial fossa associated with an acute nondisplaced fracture of the right greater wing of the sphenoid. EXTRACRANIAL STRUCTURES: Acute nondisplaced fracture of the right greater wing of the sphenoid. Additional minimally displaced/nondisplaced acute maxillofacial fractures as described below. Large laceration of the right anterior frontal scalp/right supraorbital region with a small underlying soft tissue hemorrhage. FACE/SINUSES: BONES: Multiple minimally displaced/nondisplaced acute maxillofacial fractures, including the following: --Acute nondisplaced fracture of the right greater wing of the sphenoid (3/169, 5/144), which extends to the right orbital apex. This is associated with trace pneumocephalus along the right anterior middle cranial fossa (3/176). --Acute minimally displaced fracture of the right orbital roof (5/127-129). This is associated with trace foci of left extraconal gas (3/192, 5/122). --Acute nondisplaced fracture of the right anterior and posterior maxillary sinus alejandra (5/166, 127). --Acute nondisplaced fracture of the left lateral orbital wall extending to the left proximal zygomatic arch (5/108, 115). --Acute minimally displaced fracture of the midportion of the left zygomatic arch (3/41). --Acute nondisplaced fracture of the left squamosal portion of the temporal bone (3/150). --Acute minimally displaced comminuted fracture of the anterosuperior portion of the left maxillary sinus wall/left orbital floor (3/160, 5/82). Additional acute minimally displace fracture of the left anterior maxillary sinus wall elsewhere (6/106, 113; 3/139). PARANASAL SINUSES: Moderate mucosal opacification/suspected blood products of the ethmoid air cells extending into the frontoethmoidal recesses. Small liquid levels/suspected blood products within the right maxillary and left sphenoid sinuses. Mild mucosal thickening of the maxillary sinuses. NASAL CAVITY: Mild mucosal thickening of nasal cavity. Mild rightward deviated deviated nasal septum with a small spur. ORBITS: Suspected right intraconal orbital varices 1.4 x 0.8 cm and 1.4 x 0.9 cm in the axial plane (4/178, 196) and small foci of right extraconal gas associated with right orbital wall acute fractures described above; otherwise, unremarkable orbits. Globes are intact. No evidence of retrobulbar hematoma. SOFT TISSUES: Large laceration of the right anterior frontal scalp/right supraorbital region with a small underlying soft tissue hemorrhage. Mild soft tissue swelling of the left frontal scalp/supraorbital region. Mild right pre-malar soft tissue swelling measuring up to 0.7 cm in thickness (4/166). OTHER: Bubbly opacities layering within the naso-oropharynx. CERVICAL SPINE: ALIGNMENT: Straightening of cervical spine lordotic curvature in addition to minimal retrolisthesis of C3 on C4. No traumatic malalignment. ATLANTOAXIAL JOINT: The dens is intact, the lateral masses of C1 are normally aligned relative to C2, and the atlantodental interval is unremarkable, other than mild degenerative changes. BONES: Vertebral body heights are maintained without evidence of acute fracture. 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 DISCS: Multilevel disc space narrowing, which is notably moderate at the C6-C7 level. DEGENERATIVE CHANGES: Overall moderate multilevel degenerative changes, characterized by varying degrees of posterior disc bulges/osteophyte complexes, facet arthropathy, and uncovertebral joint hypertrophy. ?? SPINAL CANAL/NEUROFORAMEN: Multilevel spinal canal stenoses that is severe at the C6-C7 level and moderate elsewhere secondary to posterior disc bulges/osteophyte complexes on a background of congenital spinal canal narrowing. Multilevel neuroforaminal narrowing that is notably high-grade at the left C3-C4 and bilateral C6-C7 levels secondary to uncovertebral joint hypertrophy. SOFT TISSUES: No prevertebral soft tissue swelling. Visualized neck soft tissues are normal. Incidentally noted scattered tonsilloliths. OTHER: Mild scarring of the lung apices. THORACIC SPINE: ALIGNMENT: Normal. BONES: Vertebral body heights are maintained without evidence of acute fracture. DISCS: Multilevel disc space narrowing with a few scattered small endplate Schmorl's nodes. DEGENERATIVE CHANGES: Overall mild multilevel degenerative changes. ?? SPINAL CANAL/NEUROFORAMEN: No significant osseous spinal canal stenosis. Multilevel high-grade bilateral neuroforaminal narrowing of the [id number]-za-[id number] thoracic spine. ?? SOFT TISSUES: Visualized soft tissues are normal. OTHER: Partially imaged portions of lungs are predominantly clear. LUMBAR SPINE: ALIGNMENT: Grade 1 anterolisthesis of L5 on S1 (measuring 10 mm) secondary to chronic L5 bilateral pars defects. Lumbar vertebral alignment is otherwise unremarkable. No evidence of acute traumatic malalignment. BONES: Vertebral body heights are maintained without evidence of acute fracture. Chronic L5 bilateral pars defects. DISCS: Multilevel disc space narrowing, which is notably moderate at the L2-L3 and L5-S1 levels with vacuum disc phenomena. DEGENERATIVE CHANGES: Overall moderate multilevel degenerative change, characterized by varying degrees of posterior disc bulges, ligamentum flavum hypertrophy, and facet arthropathy. ?? SPINAL CANAL/NEUROFORAMEN: Moderate spinal canal stenosis at the L2-L3 and L3-L4 levels secondary to posterior bulges/ligamentum flavum hypertrophy, and facet arthropathy. ??Severe neuroforaminal narrowing at the right L2-L3 and bilateral L5-S1 levels and zbojvonx-ih-fjwauh neuroforaminal narrowing elsewhere throughout the lumbar spine. SOFT TISSUES: Visualized soft tissues are normal. OTHER: Minimal degenerative changes of the sacroiliac joints. Procedure Note Marcelo Ingram MD - 11/16/2022 EXAM: CT HEAD WO CONTRAST, CT FACIAL BONES WO CONTRAST, CT LUMBAR SPINEWO CONTRAST, CT THORACIC SPINE WO CONTRAST, CT CERVICAL SPINE WO CONTRAST, DATE/TIME OF EXAM: 11/16/2022 9:19 PM, LOCATION: [facility] HISTORY: Trauma EXAMINATION: CT scan of the head and facial bones/paranasal sinuses in addition to CT scan of the cervical, thoracic, and lumbar spine without intravenous contrast TECHNIQUE: CT of the head, facial bones/paranasal sinuses, and cervical spine was performed without intravenous contrast according to standard protocol.CT dose reduction technique was used, including Automated Exposure Control. Reformatted axial, sagittal, and coronal images of the thoracic andlumbar spine were obtained by the technologist from a concurrently performed chest, abdomen, and pelvis CT and sent to the workstation for review. COMPARISON: No prior similar studies are available for comparison. FINDINGS: HEAD: BRAIN PARENCHYMA: No acute hemorrhage, large vascular territory infarct,or mass effect. No acute hemorrhage, large vascular territory infarct, ormass effect. White matter is within normal limits for age. VENTRICLES/EXTRA-AXIAL SPACES: No ventriculomegaly or extra-axial collection. Basal cisterns are patent. Trace focus of pneumocephalusalong the right anterior middle cranial fossa associated with an acute nondisplaced fracture of the right greater wing of the sphenoid. EXTRACRANIAL STRUCTURES: Acute nondisplaced fracture of the rightgreater wing of the sphenoid. Additional minimally displaced/nondisplaced acute maxillofacial fractures as described below. Large laceration of theright anterior frontal scalp/right supraorbital region with a small underlying soft tissue hemorrhage. FACE/SINUSES: BONES: Multiple minimally displaced/nondisplaced acute maxillofacial fractures, including the following: --Acute nondisplaced fracture of the right greater wing of the sphenoid (3/169, 5/144), which extends to the right orbital apex. This isassociated with trace pneumocephalus along the right anterior middle cranial fossa (3/176). --Acute minimally displaced fracture of the right orbital roof(5/127-129). This is associated with trace foci of left extraconal gas (3/192,5/122). --Acute nondisplaced fracture of the right anterior and posteriormaxillary sinus alejandra (5/166, 127). --Acute nondisplaced fracture of the left lateral orbital wall extendingto the left proximal zygomatic arch (5/108, 115). --Acute minimally displaced fracture of the midportion of the left zygomatic arch (3/41). --Acute nondisplaced fracture of the left squamosal portion of thetemporal bone (3/150). --Acute minimally displaced comminuted fracture of the anterosuperior portion of the left maxillary sinus wall/left orbital floor (3/160,5/82). Additional acute minimally displace fracture of the left anteriormaxillary sinus wall elsewhere (6/106, 113; 3/139). PARANASAL SINUSES: Moderate mucosal opacification/suspected bloodproducts of the ethmoid air cells extending into the frontoethmoidal recesses.Small liquid levels/suspected blood products within the right maxillary andleft sphenoid sinuses. Mild mucosal thickening of the maxillary sinuses. NASAL CAVITY: Mild mucosal thickening of nasal cavity. Mild rightward deviated deviated nasal septum with a small spur. 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 Globes are intact. No evidence of retrobulbar hematoma. SOFT TISSUES: Large laceration of the right anterior frontal scalp/right supraorbital region with a small underlying soft tissue hemorrhage. Mild soft tissue swelling of the left frontal scalp/supraorbital region. Mild right pre-malar soft tissue swelling measuring up to 0.7 cm in thickness (4/166). OTHER: Bubbly opacities layering within the naso-oropharynx. CERVICAL SPINE: ALIGNMENT: Straightening of cervical spine lordotic curvature inaddition to minimal retrolisthesis of C3 on C4. No traumatic malalignment. ATLANTOAXIAL JOINT: The dens is intact, the lateral masses of C1 are normally aligned relative to C2, and the atlantodental interval is unremarkable, other than mild degenerative changes. BONES: Vertebral body heights are maintained without evidence of acute fracture. 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 DISCS: Multilevel disc space narrowing, which is notably moderate at the C6-C7 level. DEGENERATIVE CHANGES: Overall moderate multilevel degenerative changes, characterized by varying degrees of posterior disc bulges/osteophyte complexes, facet arthropathy, and uncovertebral joint hypertrophy. SPINAL CANAL/NEUROFORAMEN: Multilevel spinal canal stenoses that issevere at the C6-C7 level and moderate elsewhere secondary to posterior disc bulges/osteophyte complexes on a background of congenital spinal canal narrowing. Multilevel neuroforaminal narrowing that is notablyhigh-grade at the left C3-C4 and bilateral C6-C7 levels secondary to uncovertebral joint hypertrophy. SOFT TISSUES: No prevertebral soft tissue swelling. Visualized neck soft tissues are normal. Incidentally noted scattered tonsilloliths. OTHER: Mild scarring of the lung apices. THORACIC SPINE: ALIGNMENT: Normal. BONES: Vertebral body heights are maintained without evidence of acute fracture. DISCS: Multilevel disc space narrowing with a few scattered smallendplate Schmorl's nodes. DEGENERATIVE CHANGES: Overall mild multilevel degenerative changes. SPINAL CANAL/NEUROFORAMEN: No significant osseous spinal canal stenosis. Multilevel high-grade bilateral neuroforaminal narrowing of the zbaga-bp-dmk thoracic spine. SOFT TISSUES: Visualized soft tissues are normal. OTHER: Partially imaged portions of lungs are predominantly clear. LUMBAR SPINE: ALIGNMENT: Grade 1 anterolisthesis of L5 on S1 (measuring 10 mm)secondary to chronic L5 bilateral pars defects. Lumbar vertebral alignment is otherwise unremarkable. No evidence of acute traumatic malalignment. BONES: Vertebral body heights are maintained without evidence of acute fracture. Chronic L5 bilateral pars defects. DISCS: Multilevel disc space narrowing, which is notably moderate at the L2-L3 and L5-S1 levels with vacuum disc phenomena. DEGENERATIVE CHANGES: Overall moderate multilevel degenerative change, characterized by varying degrees of posterior disc bulges, ligamentum flavum hypertrophy, and facet arthropathy. SPINAL CANAL/NEUROFORAMEN: Moderate spinal canal stenosis at the L2-L3and L3-L4 levels secondary to posterior bulges/ligamentum flavumhypertrophy, and facet arthropathy. Severe neuroforaminal narrowing at the rightL2-L3 and bilateral L5-S1 levels and pljprrlo-vk-yolfie neuroforaminalnarrowing elsewhere throughout the lumbar spine. SOFT TISSUES: Visualized soft tissues are normal. OTHER: Minimal degenerative changes of the sacroiliac joints. IMPRESSION: 1.No acute intracranial abnormality. 2.Multiple minimally displaced/nondisplaced acute maxillofacialfractures as described in the findings, which is associated with tracepneumocephalus along the right anterior middle cranial fossa and trace foci of gaswithin the right extraconal space. No evidence of globe trauma or retro-orbital bulbar hematoma. 3.No acute fracture or traumatic malalignment of the cervical, thoracic,or lumbar spine. This study was dictated by co founder and president Maico Regan MD and reviewed and edited by the attending. Marcelo Ferguson MD, PhD have personally reviewed and interpreted this examination/study. > Interpreting Provider: Marcelo Ingram MD, PhD on 11/16/2022 11:54 PM Tad Booker MD CT ORDERABLES * XR CHEST 1VW PORTABLE (11/16/2022 9:10 PM CDT) Anatomical Region Laterality Modality Chest Radiographic Shahla ging 11/16/2022 9:28 PM CDT Narrative 11/17/2022 6:58 AM CDT PROCEDURE: ??XR CHEST 1VW PORTABLE, DATE/TIME OF EXAM: ??11/16/2022 9:28 PM, LOCATION ??[facility] INDICATION: Trauma ADDITIONAL CLINICAL INFORMATION: Ordering Provider Reason For Exam: Technologist Note: Additional: COMPARISON: None. FINDINGS/IMPRESSION: Lungs are partially expanded. There is no focal consolidation, pleural effusion, or pneumothorax. The cardiomediastinal silhouette is normal. The visible bony thorax is intact. Report dictated by Luis A Peres DO (co founder and president). Venkatesh Ferguson MD have personally reviewed and interpreted this examination/study. > Interpreting Provider: Venkatesh Velasquez MD on 11/17/2022 6:58 AM Procedure Note Venkatesh Velasquez MD - 11/17/2022 PROCEDURE: XR CHEST 1VW PORTABLE, DATE/TIME OF EXAM: 11/16/2022 9:28PM, LOCATION [facility] INDICATION: Trauma ADDITIONAL CLINICAL INFORMATION: Ordering Provider Reason For Exam: Technologist Note: Additional: COMPARISON: None. FINDINGS/IMPRESSION: Lungs are partially expanded. There is no focal consolidation, pleural effusion, or pneumothorax. The cardiomediastinal silhouette is normal. The visible bony thorax isintact. Report dictated by Luis A Peres DO (co founder and president). Venkatesh Ferguson MD have personally reviewed and interpreted this examination/study. > Interpreting Provider: Venkatesh Velasquez MD on 36:58 AM Tad Booker MD DIAGNOSTIC IMAGING O RDERABLES * XR PELVIS 1 OR 2VW (11/16/2022 9:10 PM CDT) Anatomical Region Laterality Modality Pelvis Radiographic Shahla ging 11/16/2022 9:2 8 PM CDT Impressions 11/17/2022 7:00 AM CDT IMPRESSION: 1.No acute fractures in the pelvis. 2.Acute moderately displaced fracture of the mid femoral diaphysis. 3.Abnormal skin thickening at the insertion of the quadriceps tendon is concerning for quadriceps retraction Recommend clinical correlation. Report dictated by Luis A Peres DO (co founder and president). Venkatesh Ferguson MD have personally reviewed and interpreted this examination/study. > Interpreting Provider: Venkatesh Velasquez MD on 11/17/2022 7:00 AM Narrative 11/17/2022 7:00 AM CDT PROCEDURE: ??XR PELVIS 1 OR 2VW, XR KNEE RIGHT 2VW OR LESS, XR FEMUR RIGHT 2VW, DATE/TIME OF EXAM: ??11/16/2022 9:28 PM, LOCATION ??[facility] INDICATION: Trauma Fracture suspected ADDITIONAL CLINICAL INFORMATION: Ordering Provider Reason For Exam: ??Trauma Technologist Note: Additional: COMPARISON: None. FINDINGS: Pelvis: No acute fracture is identified. The femoral heads appear well-seated within their respective acetabula. The pubic symphysis is intact. Bone density and texture are normal. The sacroiliac joints are normal. Right femur: Transverse fracture of the mid femoral diaphysis with approximately one shaft width medial displacement and half shaft width posterior displacement The joint spaces are preserved. Bone density and texture are normal. Right knee: The osseous structures are intact and well aligned without acute fracture or dislocation. The knee joint space is preserved. No joint effusion is seen. Abnormal skin thickening at the insertion of the quadriceps tendon with slight inferior subluxation of the patella, likely from retraction of quadriceps related to foreshortening of the femur. Procedure Note Venkatesh Velasquez MD - 11/17/2022 PROCEDURE: XR PELVIS 1 OR 2VW, XR KNEE RIGHT 2VW OR LESS, XR FEMURRIGHT 2VW, DATE/TIME OF EXAM: 11/16/2022 9:28 PM, LOCATION [facility] INDICATION: Trauma Fracture suspected ADDITIONAL CLINICAL INFORMATION: Ordering Provider Reason For Exam: Trauma Technologist Note: Additional: COMPARISON: None. FINDINGS: Pelvis: No acute fracture is identified. The femoral heads appear well-seated within their respective acetabula. The pubic symphysis is intact. Bone density and texture are normal. The sacroiliac joints are normal. Right femur: Transverse fracture of the mid femoral diaphysis with approximately one shaft width medial displacement and half shaft width posteriordisplacement The joint spaces are preserved. Bone density and texture are normal. Right knee: The osseous structures are intact and well aligned without acutefracture or dislocation. The knee joint space is preserved. No joint effusion is seen. Abnormal skin thickening at the insertion of the quadriceps tendon with slight inferior subluxation of the patella, likely from retractionof quadriceps related to foreshortening of the femur. IMPRESSION: 1.No acute fractures in the pelvis. 2.Acute moderately displaced fracture of the mid femoral diaphysis. 3.Abnormal skin thickening at the insertion of the quadriceps tendon is concerning for quadriceps retraction Recommend clinical correlation. Report dictated by Luis A Peres DO (co founder and president). I, Venkatesh Velasquez MD have personally reviewed and interpreted this examination/study. > Interpreting Provider: Venkatesh Velasquez MD on 37:00 AM Tad Booker MD DIAGNOSTIC IMAGING O RDERABLES * PT-INR [facility] (11/16/2022 8:46 PM CDT) PT 13.2 12.1 - 14.8 Seconds 11/16/2022 9:14 PM CDT [facility] INR 1.0 See Comment 11/16/2022 9:14 PM CDT [facility] Comment:The suggested therap eutic range for standard coumadin (warfarin) therapy is an INR of 2.0-3.0. For high-risk patients (Mechanical Mitral Valve Prosthesis, etc.), the suggested prophylactic therapeutic range is an INR of 2.5-3.5. Blood BLOOD SPECIMEN / Unknown Venipuncture / Unknown 11/16/2022 8:46 PM CDT 11/16/2022 8:53 PM CDT Tad Booker MD LAB - COAGULATION OR DERABLES Performing Organization Address [facility] Co de Phone Number [facility] [address] [place] [phone], [facility] [phone] * VITAMIN D 25-HYDROXY (11/16/2022 8:46 PM CDT) Pathologist [facility] Vitamin D, 25 Hydroxy 35.0 30.0 - 80.0 ng/mL 11/17/2022 12:19 AM CDT [facility] Comment: The recommendations for 25-Hydroxy Vitamin D clinical decision points are as follows: ? Deficient: ? <20.0 ng/mL ? Insufficient: ? 20.0 - 29.9 ng/mL ? Sufficient: ? 30.0 - 100.0 ng/mL ? Potential Toxicity: ??>100 ng/mL Reference: The Endocrine Society Clinical Practice Guidelines. 2011 If the 25-Hydroxy Vitamin D results are inconsitent with clinical evidence, it is recommended that follow-up testing using a method such as LC/MS/MS be performed to confirm the result. ? Blood BLOOD SPECIMEN / Unknown Venipuncture / Unknown 11/16/2022 8:46 PM CDT 11/16/2022 8:53 PM CDT Usman Araiza MD LAB - CHEMISTRY MOUNA TILLMAN [facility] [address] [place] [phone], [facility] [phone] * TYPE + SCREEN PANEL (11/16/2022 8:46 PM CDT) Pathologist [facility] Antibody Screen NEG 9:43 PM CDT [facility] ABO Rh O POS 11/16/2022 9:43 PM CDT [facility] Blood Bank BLOOD SPECIMEN / Unknown Venipuncture / Unknown 11/16/2022 8:46 PM CDT 11/16/2022 8:54 PM CDT Tad Booker MD LAB - BLOOD BANK MALCOLM MILLER [facility] [address] [place] [id number], [facility] [phone] * (ABNORMAL) CBC W AUTO DIFFERENTIAL (11/16/2022 8:46 PM CDT) [facility] WBC 10.1 3.5 - 10.5 10? 3 /uL 11/16/2022 8:57 PM CDT [facility] RBC 3.99(L) 4.30 - 5.70 10? 6 /uL 11/16/2022 8:57 PM CDT [facility] Hemoglobin 13.1 12.0 - 17.6 g/dL 11/16/2022 8:57 PM CDT [facility] Hematocrit 38.8 35.2 - 51.7 % 11/16/2022 8:57 PM CDT [facility] MCV 97.2 80.7 - 98.3 fL 11/16/2022 8:57 PM CDT [facility] MCH 32.8 26.7 - 34.0 pg 11/16/2022 8:57 PM CDT [facility] MCHC 33.8 30.8 - 35.9 g/dL 11/16/2022 8:57 PM [facility] RDW-SD 43.1 36.0 - 50.0 fL 11/16/2022 8:57 PM [facility] RDW-CV 11.9 11.2 - 14.8 % 11/16/2022 8:57 PM [facility] Platelet Count 206 150 - 400 10? 3 /uL 11/16/2022 8:57 PM [facility] MPV 10.6 9.4 - 12.9 fL 11/16/2022 8:57 PM [facility] nRBC Absolute 0.00 0 10? 3 /uL 11/16/2022 8:57 PM [facility] nRBC Auto 0.0 0 /100 WBC 11/16/2022 8:57 PM [facility] Neutrophils % 66.7 35.0 - 70.0 % 11/16/2022 8:57 PM [facility] Lymphocytes % 22.8 20.0 - 43.0 % 11/16/2022 8:57 PM [facility] Monocytes % 7.3 5.0 - 13.0 % 11/16/2022 8:57 PM [facility] Eosinophils % 2.4 0.0 - 6.0 % 11/16/2022 8:57 PM [facility] Basophil % 0.6 0.0 - 2.0 % 11/16/2022 8:57 PM [facility] Neutrophils Absolute 6.77 1.60 - 7.00 10? 3 /uL 11/16/2022 8:57 PM [facility] Lymphocyte Absolute 2.31 1.10 - 3.90 10? 3 /uL 11/16/2022 8:57 PM [facility] Monocytes Absolute 0.74 0.26 - 1.07 10? 3 /uL 11/16/2022 8:57 PM [facility] Eosinophils Absolute 0.24 0.00 - 0.47 10? 3 /uL 11/16/2022 8:57 PM [facility] Basophils Absolute 0.06 0.00 - 0.08 10? 3 /uL 11/16/2022 8:57 PM [facility] Immature Granulocytes % 0.2 0.0 - 1.0 % 11/16/2022 8:57 PM CDT [facility] Immature Granulocytes Absolute 0.02 11/16/2022 8:57 PM CDT [facility] Blood BLOOD SPECIMEN / Unknown Venipuncture / Unknown 11/16/2022 8:46 PM CDT 11/16/2022 8:53 PM CDT Tad Booker MD LAB - HEMATOLOGY ORD ANGELA Performing Organization Address [facility]/ZIP Co de Phone Number [address] [phone], [facility] [phone] * ALCOHOL ETHYL BLOOD (11/16/2022 8:46 PM CDT) Ethanol (mg/dL) <10 <10 mg/dL 9:19 PM CDT [facility] Ethanol Calculated (g/dL) <0.010 <=0.010 g/dL 11/16/2022 9:19 PM CDT [facility] Blood BLOOD SPECIMEN / Unknown Venipuncture / Unknown 11/16/2022 8:46 PM CDT 11/16/2022 8:53 PM CDT Narrative [facility] - 11/16/2022 9:19 PM CDT Ethanol Interp <10: None Detected. Depression of BUSINESS CONTINUITY SPECIALIST: >100 mg/dl Potentially Critical: >250 mg/dl Potentially Fatal >400 mg/dl Ethanol in the patient's blood will contribute to the osmolar gap. Ethanol's contribution to the osmolar gap can be estimated by dividing the concentration of ethanol in mg/dL by 4.6. This test is for clinical use only and does not equal a NIRAV for legal purposes. Tad Booker MD LAB - CHEMISTRY ORDDiane TILLMAN Performing Organization Address City/[facility]/ZIP Co de Phone Number [address] [phone], [place] [phone] Care Teams Brick Carrier Relationship Specialty Start Date End Date Tee Miller MD [address] [place] [id number] PCP - General Family Medicine 11/29/22
--- OUTSIDE RECORDS SUMMARY | 2024-05-03 09:51 | XMS_ITS | Clinical Summary ---
Author Organization [facility] Address [address] [place] [address] Care Team Providers Care Care Team Coordinator Scheduler Name Role Phone Tee Miller MD Primary Care Provider + Source Comments [facility],non-owned Affiliates and Associated Physician Practices is amultiple site organization consisting of ambulatory clinics and hospital sitesin [place], [place], [place] and [place]. This disclosure is being madepursuant to the Care Everywhere program and may not contain all information available regarding this patient. Last updated 17.[facility] Allergies Active Allergy Reactions Criticality Noted Date [...] Patient not taking.Reported on 03/17/2023 HYDROcodone-acetami nophen ([place]) 5-325 MG tabletIndications:C losed fracture of shaft of right femur, unspecified fracture morphology, initial encounter ([facility]) Take 1 (one) tablet by mouth every [...] Recorded Patient Health Questionnaire-2 Score 0 03/17/2023 [facility] [place] of Occupat ional Health - Occupational Stress [...] place to sleep or slept in a skilled nursing (including now)? 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 Height 180.3 cm (5' 11 ) 01/06/2023 1:40 PM CDT Body Mass Index 24.97 01/06/2023 1:40 PM CDT Plan of Treatment Health Maintenance Due Date Last Done Comments COLOGUARD (AGES 45-75) - COL ON CA SCREENING 1965 COLON MONITORING 1965 COLONOSCOPY - COLON CA SCREENING 1965 CT COLONOGRAPHY - COLON CA SCREENING 1965 Colorectal Cancer Screening 1965 FIT - COLON CA SCREENING 1965 FLEX SIG - COLON CA SCREENING 1965 LIPID TESTING 1965 HIV SCREENING 1980 HEPATITIS C SCREENING 03/20/1983 HEPATITIS B VACCINE (1 of 3 - 19+ 3-dose series) 1984 PNEUMOCOCCAL VACCINE 50+ (1 of 1 - PCV) 2015 ZOSTER VACCINE (1 of 2) 2015 COVID-19 VACCINE (1 - 2023-2 5 season) 2023 INFLUENZA VACCINE (#1) 2023 DEPRESSION SCREENING 04/03/2024 02/13/2023 DTAP/TDAP/TD VACCINES (2 - T d or Tdap) 11/16/2032 11/16/2022 HIB VACCINE Aged Out No longer eligi ble based on patient's age to complete this topic HPV VACCINE Aged Out No longer eligi ble based on patient's age to complete this topic MENINGOCOCCAL (Group B) VACCINE Aged Out No longer eligible based on patient's age to complete this topic MENINGOCOCCAL VACCINE Aged Out No lu kerline eligible based on patient's age to complete this topic PNEUMOCOCCAL VACCINE Aged Out No long er eligible based on patient's age to complete this topic Medical Devices Implanted Type Area Nurseryman Assistant Device Identifier Shelf Expiration Date Model / Serial / Lot Nail Im 11.5mm 13mm 40cm Ntr Nail Fem Implanted:Qty: 1 on 11/17/2022 by Jacoby Sosa MD at [facility] Right: Femur [employer] 04/02/2029 [id number] / / [id number] Screw 6mm 3.5mm 55mm Ft Fx Ang Hex Head Implanted:Qty: 1 on 11/17/2022 by Jacoby Sosa MD at [facility] Right: Femur [employer] 11/25/2030 [id number] / / [id number] Screw 5mm 3.5mm 45mm Ft Fx Ang Hex Head Implanted:Qty: 1 on 11/17/2022 by Jacoby Sosa MD at [facility] Right: Femur [employer] 09/07/2032 [id number] / / [id number] Advance Directives Documents on File Type Date Recorded 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
--- OUTSIDE RECORDS SUMMARY | 2024-05-03 09:51 | XMS_ITS | Encounter Summary ---
Author Organization [facility] Address [address] [place] [address] Care Team Providers Care Target Trimmer Name Role Phone Tee Miller MD Primary Care Provider + Encounter Details Date Type Department Care Team (Late st Contact Info) Description 11/17/2022 Ophth Exam [facility] - Ophthalmology [address] [place] [address] Geovanny Richter, DO [address] [facility] [place] [address] Social History Tobacco Use Types Packs/Day Years Used Date Smoking Tobacco: Never Smokeless Tobacco: Never Alcohol Use Standard Drinks/Week Comments Yes 0 (1 standard drink = 0.6 oz pur e alcohol) social AUDIT-C Answer Date Recorded Q1: How often [...] monthly 11/17/2022 Overall Financial Resource Strain (CARDIA) Ana Maríae r Date Recorded How hard is it for you to pa y for the very basics like food, housing, medical care, and heating? Not hard at all 11/17/2022 [facility] [place] of Occupat ional Health - Occupational Stress [...] place to sleep or slept in a fci (including now)? No 11/17/2022 Sex and Gender Information Value Date Recorded Sex Assigned at Not on file Gender Identity Not on file Sexual Orientation Not on file documented as of this encounter Functional Status Functional Status Response Date of [...] person have difficulty concentrating/remembering/making decisions? No 11/17/2022 documented as of this encounter Plan of Treatment Not on file documented as of this encounter Visit Diagnoses Not on filedocumented in this encounter Care Teams Target Trimmer Relationship Specialty Start Date End Date Tee Miller MD [address] [address] PCP - General Family Medicine 11/29/22 documented as of this encounter
--- OUTSIDE RECORDS SUMMARY | 2024-05-03 09:51 | XMS_ITS | Clinical Summary ---
Author Organization [facility] Address [address] [facility] [place] [address] Phone Care Team Providers Care Instructor Physical Education Name Role Phone Provider, None Primary Care Provider Unavailabl e Allergies No known active allergies Medications HYDROcodone-acet aminophen ([place]) 5-325 MG Tablet Take 1-2 Tabs by mouth every 4 hours as needed for Pain. 30 Tab 0 01/14/2015 Active Immunizations Immunization Administration Dates Next Due Td Vaccine (preservative free) 01/14/2015 Social History Tobacco Use Types Packs/Day Years Used Date Smoking Tobacco: Never Assessed Sex and Gender Information Value Date Recorded Sex Assigned at Not on file Legal Sex Male 5:18 PM CDT Gender Identity Not on file Sexual Orientation Not on file Last Filed Vital Signs Vital Sign Reading Time Taken Comments Blood Pressure 138/77 01/15/2015 2:19 AM CDT Pulse 97 01/15/2015 2:23 AM CDT Temperature 36.9 ??C (98.4 ??F) 01/14/2015 5:25 PM CD T Respiratory Rate 15 01/15/2015 2:23 AM CDT Oxygen Saturation 100% 01/15/2015 2:23 AM CDT Inhaled Oxygen Concentration - - Weight 79.4 kg (175 lb) 01/14/2015 5:25 PM CDT Height 180.3 cm (5' 11 ) 01/14/2015 5:25 PM CDT Body Mass Index 24.41 01/14/2015 5:25 PM CDT Plan of Treatment Not on file Insurance Care Teams Instructor Physical Education Relationship Specialty Start Date End Date Provider, None VANDA PCP - General 01/14/15
--- OUTSIDE RECORDS SUMMARY | 2024-05-03 09:51 | XMS_ITS | Encounter Summary ---
Author Organization [facility] Address [address] [facility] [place] [address] Care Team Providers Care Senior Production Supervisor Name Role Phone Tee Miller MD Primary Care Provider + Encounter Details Date Type Department Care Team (Late st Contact Info) Description 11/18/2022 Ophth Exam [facility] - Ophthalmology [address] [place] [phone] Fidelia Brown DO [address] [place] [phone] Social History Tobacco Use Types Packs/Day Years [...] and heating? Not hard at all 11/17/2022 [facility] [place] of Occupat ional Health - Occupational Stress [...] place to sleep or slept in a long term (including now)? No 11/17/2022 Sex and Gender [...] on filedocumented in this encounter Care Teams Senior Production Supervisor Relationship Specialty Start Date End Date Tee Miller MD [address] [place], [place] [id number] PCP - General Family Medicine 11/29/22 documented as of this encounter
== END 2024-05-03 09:34 | disposition home or self-care (01) ==
PROVIDERS: PCP Family Medicine; Visit Provider Family Medicine
DX: R07.9 Chest pain, unspecified (principal)
CPT/HCPCS: 78452; 93017; A9502